=== PATIENT | female | born 1970 | race African-American/Black ===

== ENCOUNTER 2020-04-17 11:31 | Outpatient (REF) | payer MEDICAID, SELFPAY ==
--- NOTE | 2020-04-17 11:40 | XR_ITS ---
EXAMINATION: XR SHOULDER, LEFT CLINICAL INFORMATION: Fall, trauma, pain COMPARISON: None TECHNIQUE: Left shoulder is imaged in 4 views. FINDINGS: There is no fracture, dislocation, destructive process. The acromioclavicular alignment is normal. The glenohumeral joint is unremarkable. There is some mild inferior spurring at the acromioclavicular joint. No visible rotator cuff calcifications. Left lung apex is clear and shows no pneumothorax or pleural reaction. XR/XR shoulder LT min 2V IMPRESSION: No fracture or dislocation. Mild spurring acromioclavicular joint.
--- NOTE | 2020-04-17 11:40 | XR_ITS ---
EXAMINATION: XR KNEE, LEFT CLINICAL INFORMATION: Fall, trauma, pain COMPARISON: None TECHNIQUE: Four views of the left knee. FINDINGS: There is no fracture or dislocation or suprapatellar effusion. No destructive process. There are osteoarthritic changes with mild narrowing medial knee joint compartment and marginal osteophytes bilateral femoral condyles and bilateral tibial plateau. There is mild posterior patellar spurring as well as spurring at the quadriceps insertion on the patella. Hoffa's fat pad appears normal. XR/XR knee LT 4V IMPRESSION: 1. No fracture, dislocation, or effusion. 2. Mild osteoarthritic changes with borderline joint narrowing, marginal osteophytes.
== END 2020-04-17 11:32 | disposition home or self-care (01) ==
LOC: HO.XRAY 11:31
PROVIDERS: PCP General Practice; Visit Provider Registered Nurse
DX: M25.512 Pain in left shoulder (principal); M25.562 Pain in left knee; W10.1XXA Fall (on)(from) sidewalk curb, initial encounter
CPT/HCPCS: 73030; 73564

== ENCOUNTER 2021-08-28 07:38 | Outpatient (REF) | payer MEDICAID, SELFPAY ==
--- NOTE | ~2021-08-28 | XR_ITS ---
EXAMINATION: XR SHOULDER, LEFT CLINICAL INFORMATION: Left shoulder pain COMPARISON: March 2020 TECHNIQUE: AP external rotation, Grashey, scapular Y, and axillary views of the left shoulder. FINDINGS: Small spurring of the distal left clavicle again observed. No acute bony fracture or dislocation. The glenohumeral joint space appears to be stable. No suspicious abnormal soft tissue calcifications. There is minimal spurring of the inferior left acromion. XR/XR shoulder LT min 2V IMPRESSION: No significant change since March 2020. No acute process. Small stable spurring at the left AC joint.
== END 2021-08-28 07:39 | disposition home or self-care (01) ==
LOC: HO.HOSX 07:38
PROVIDERS: Visit Provider Physician Assistant
DX: M75.102 Unspecified rotator cuff tear or rupture of left shoulder, not specified as traumatic (principal)
CPT/HCPCS: 20610; 73030; 99202; J1040

== ENCOUNTER 2021-09-16 08:01 | Outpatient (REF) | payer MEDICAID, SELFPAY | END 2021-09-16 08:02 | disposition home or self-care (01) | LOC: HO.HOSX 08:01 | PROVIDERS: Visit Provider Physician Assistant | DX: Z13.89 Encounter for screening for other disorder (principal) ==

== ENCOUNTER 2021-10-20 07:17 | Outpatient (REF) | payer MEDICAID, SELFPAY | END 2021-10-20 07:18 | disposition home or self-care (01) | LOC: HO.HOSX 07:17 | PROVIDERS: Visit Provider Physician Assistant | DX: Z13.89 Encounter for screening for other disorder (principal) ==

== ENCOUNTER 2021-11-13 08:51 | Outpatient (REF) | payer MEDICAID, SELFPAY ==
--- NOTE | ~2021-11-13 | XR_ITS ---
EXAMINATION: XR KNEE, LEFT XR KNEE AP STANDING CLINICAL INFORMATION: Pain. COMPARISON: Radiographs dated 04/17/2020. TECHNIQUE: Lateral and axial views of the left knee are obtained. AP bilateral standing view of the knees was obtained. FINDINGS: Bony alignment and mineralization are normal. The lateral, medial and patellofemoral joint space compartments of the left knee are well-maintained. There is mild, circumferential peripheral osteophyte formation of the articular surface of the patella. No fracture, dislocation or left knee joint effusion is seen. There is no foreign body. The lateral joint space compartment of the right knee is well-maintained. The lateral joint space compartment of the left knee shows very mild asymmetric narrowing, with peripheral osteophyte formation. No significant varus or valgus configuration is seen bilaterally. XR/XR knee LT 2V IMPRESSION: 1. There is mild osteoarthritic change of the patellofemoral compartment of the left knee. 2. There is mild osteoarthritic change of the medial joint space compartment of the right knee. 3. No fracture or dislocation is seen bilaterally. There is no significant left knee joint effusion. 4. No significant varus or valgus configuration is seen bilaterally.
--- NOTE | ~2021-11-13 | XR_ITS ---
EXAMINATION: XR KNEE, LEFT XR KNEE AP STANDING CLINICAL INFORMATION: Pain. COMPARISON: Radiographs dated 04/17/2020. TECHNIQUE: Lateral and axial views of the left knee are obtained. AP bilateral standing view of the knees was obtained. FINDINGS: Bony alignment and mineralization are normal. The lateral, medial and patellofemoral joint space compartments of the left knee are well-maintained. There is mild, circumferential peripheral osteophyte formation of the articular surface of the patella. No fracture, dislocation or left knee joint effusion is seen. There is no foreign body. The lateral joint space compartment of the right knee is well-maintained. The lateral joint space compartment of the left knee shows very mild asymmetric narrowing, with peripheral osteophyte formation. No significant varus or valgus configuration is seen bilaterally. XR/XR knee standing BI IMPRESSION: 1. There is mild osteoarthritic change of the patellofemoral compartment of the left knee. 2. There is mild osteoarthritic change of the medial joint space compartment of the right knee. 3. No fracture or dislocation is seen bilaterally. There is no significant left knee joint effusion. 4. No significant varus or valgus configuration is seen bilaterally.
== END 2021-11-13 08:52 | disposition home or self-care (01) ==
LOC: HO.HOSX 08:51
PROVIDERS: Visit Provider Physician Assistant
DX: M17.12 Unilateral primary osteoarthritis, left knee (principal)
CPT/HCPCS: 73560; 73565; 99212

== ENCOUNTER 2022-02-10 14:00 | Outpatient (RCR) | payer MEDICAID, SELFPAY ==
--- NOTE | 2021-12-23 15:53 | MHC.PT.EP ---
[facility] [place] Office [place] Office [place] Office [address] [phone] F: [phone] F: [phone] F: [phone] F: [phone] Physical Therapy Plan of Care Date of Evaluation: Date of Surgery: NA Diagnosis: L KNEE OA Assessment: Pt IS 51 YO F REFERRED TO PT FROM [facility]) WITH L KNEE OA. Pt REPORTS FALL 1 YR AGO WHICH STARTED PAIN IN L KNEE AND L SHLDER (Pt TO GET SCRIPT FOR L SHLDER TREATMENT ALSO). PRESENTS WITH DECREASED L KNEE FLEXION, PAIN. SHOULD BENEFIT FROM PT TO ADDRESS THESE ISSUES Frequency and Duration: The patient will be seen 2X/WK X 4 WKS Short Term Goals: 1. INCREASED AWARENESS KNEE CARE 2. I HEP WITH DC EX PLAN Group Home Goals: 1. INCREASED L KNEE FLEX 10 DEGREES 2. DECREASED L KNEE PAIN AT LEASAT 50% WITH ADLS 3. IMPROVED LEFI (SOC=) Treatment Plan: Modalities to reduce pain, spasms and effusion. Manual therapy to restore motion and function. Therapeutic exercise to improve strength and flexibility. Neuromuscular re-education for posture and balance. Therapeutic activities to return to functional activities of daily living. Electronically signed by: KENDY VERDUGO PT Please sign and return to therapist. Thank you for your referral.
--- NOTE | 2022-02-13 12:17 | MHC.PT.DC ---
[facility] [place] Office [place] Office [place] Office [address] [facility] [phone] F: [phone] F: [phone] F: [phone] F: [phone] Physical Therapy Discharge Report Diagnosis: L KNEE OA Date of Surgery: NA Date of Evaluation: 12/23/21 Date of Discharge: 02/13/22 Treatments to Date: 6 Cancellations to Date: No Shows to Date: Discharge Status: Achieved Goals Improved Function Independent with HEP Patient Elected to Stop Discharge Summary: HAS MET PT GOALS Electronically signed by: KENDY VERDUGO PT Please sign and return to therapist. Thank you for your referral.
== END 2022-02-13 12:26 | disposition home or self-care (01) ==
LOC: HO.PT 14:00
PROVIDERS: PCP General Practice; Visit Provider Physician Assistant
DX: M17.12 Unilateral primary osteoarthritis, left knee (principal)
CPT/HCPCS: 97110; 97161; 97530

== ENCOUNTER 2022-03-10 14:00 | Outpatient (RCR) | payer MEDICAID, SELFPAY ==
[2022-03-04 14:09] VITALS: BP 151/95; PULSE 85; O2SAT 97
== END 2022-03-27 15:24 | disposition home or self-care (01) ==
LOC: HO.PT 14:00
PROVIDERS: PCP General Practice; Visit Provider General Practice
DX: M25.512 Pain in left shoulder (principal)
CPT/HCPCS: 97110; 97162

== ENCOUNTER 2023-03-08 11:40 | Outpatient (REF) | payer MEDICAID, SELFPAY ==
[2023-03-08 13:53] LABS: Estimated Average Glucose 114 mg/dL; Hemoglobin A1c % 5.6 % (<6.0)
[2023-03-08 14:04] LABS: Alanine Aminotransferase 21 U/L (0-31); Albumin Level 4.2 g/dL (3.5-5.0); Alkaline Phosphatase 85 U/L (39-117); Anion Gap 12 (12-20); Aspartate Amino Transferase 25 U/L (5-31); Bilirubin Total 0.3 mg/dL (0.0-1.0); Blood Urea Nitrogen 8 mg/dL (9-16); Calcium 9.6 mg/dL (8.4-10.2); Carbon Dioxide 30 mmol/L (22-29); Chloride 104 mmol/L (96-108); Cholesterol 185 mg/dL (<200); Estimated Glomerular Filt Rate > 60; Glucose Random 92 mg/dL (60-115); HDL Cholesterol 42 mg/dL (>40); LDL Cholesterol Calculated 100 mg/dL (<100); Potassium 4.3 mmol/L (3.3-5.1); Sodium 142 mmol/L (135-145); Total Protein 8.2 g/dL (6.5-8.0); Triglycerides 219 mg/dL (<150)
[2023-03-08 14:23] LABS: TSH reflex Free T4 0.46 uIU/mL (0.32-4.0)
== END 2023-03-08 11:41 | disposition home or self-care (01) ==
LOC: HO.HHCL 11:40
PROVIDERS: Visit Provider General Practice
DX: E05.90 Thyrotoxicosis, unspecified without thyrotoxic crisis or storm (principal); I10 Essential (primary) hypertension
CPT/HCPCS: 36415; 80053; 80061; 83036; 84443

== ENCOUNTER → 2023-04-07 12:45 | Outpatient (REF) | payer MEDICAID, SELFPAY ==
--- NOTE | 2023-04-07 12:47 | CA_ITS ---
Transthoracic Echocardiogram Patient (Last, First, Middle): Shelby Boateng E Gender: Female Date of : 1970 Age: 53 Procedure Date: 04/07/2023 Procedure Type: Transthoracic Echocardiogram Location: OP Height: 154.94 cm Weight: 87.09 kg BSA: 1.86 m2 Heart Rate: bpm BP: 120 / 80 mmHg Blast Furnace Checker: DL/ARIELLA Referring MD: Leidy House MD Electronic Train Control Technician: Iglesia Us MD Symptoms: R06.01 BREATHLESSNESS WHEN LYING DOWN Study Quality: Adequate ECG Rhythm: Sinus Conclusions: - 1. Normal LV ejection fraction 65-70% with impaired relaxation filling pattern 2. Normal cardiac valvular Dopplers 3. No gross pericardial effusion Findings Left Ventricle Normal left ventricular size, thickness, and systolic function. The visually estimated ejection fraction is between 65-70%. Spectral Doppler is indicative of an impaired relaxation filling pattern. E/E prime ratio is between 8 and 15 consistent with indeterminate filling pressures. Peak GLS is -16.3%, which is mildly reduced. Right Ventricle Normal right ventricular cavity size and systolic function. Atria Both atria are normal in size. There is lipomatous hypertrophy of the interatrial septum. Interatrial shunt cannot be excluded. Aortic Valve Normal aortic valve structure and function. There is no aortic valve stenosis. There is no aortic valve regurgitation. Mitral Valve Normal mitral valve structure and function. There is trace mitral valve regurgitation. There is no mitral valve stenosis. Pulmonic Valve The pulmonic valve is likely normal. Tricuspid Valve Normal tricuspid valve structure. Tricuspid regurgitation envelope is inadequate for calculation of right ventricular systolic pressure. Normal right atrial pressure. Great Vessels All visible segments of the aorta are normal in size. The pulmonary artery was not well visualized. There is no dilatation of the ascending aorta measuring 2.70 cm. Venous The inferior vena cava is normal in size and collapses greater than 50% with inspiration. Pericardium/Pleural There is no evidence of pericardial effusion. Prior Study Comparison No prior study available for comparison. Recommendations, Care & Conclusions Recommend contrast study to evaluate intracardiac shunting. Measurements 2D Linear Measurements IVSd: 1.14 0.6-0.9/0.6-1.0 cm LVIDd: 3.84 3.9-5.3/4.2-5.9 cm LVIDd Index: 2.06 2.4-3.2/2.2-3.1 cm/m2 LVIDs: 2.37 2.0-3.6 cm LVPWd: 1.05 0.7-1.1 cm LA Diam: 4.00 2.7-3.8/3.0-4.0 cm LAIDs Index: 2.15 1.5-2.3 cm/m2 LV Mass: 169.14 67-162/88-224 g LV Mass Index: 90.93 43-95/49-115 g/m2 LVOT Diam: 2.00 3.0+(-)1.3 cm 2D Systolic Function EF 4C: 75.50 >55% EF 2C: 59.70 >55% EF BiP: 69.50 >55% Mitral Valve MV Pk E: 0.84 MV PK A: 0.97 MV Decel Time: 216.00 E/A: 0.90 E'Lateral: 6.64 E'Medial: 5.55 E/E' Med: 15.10 E/E' Lat: 12.70 PHT: 63.00 MVA PHT: 3.49 Decel Kitt[place]: 3.89 Aortic Valve AoV Pk Brandon: 1.27 AoV Mn Brandon: 0.90 AoV VTI: 0.26 AoV Pk Grad: 6.00 Aov Mn Grad: 4.00 SARAH Cont.VTI: 2.55 LVOT LVOT Pk Brandon: 1.02 LVOT Mn Brandon: 0.70 LVOT VTI: 0.21 LVOT Pk Grad: 4.00 LVOT Mn Grad: 2.00 LVOT Diam: 2.00 LVOT Area: 3.14 Diastolic Function MV Pk E: 0.84 MV Pk A: 0.97 E/A: 0.90 E'Medial: 5.55 E/E' Med: 15.10 E' Laterial: 6.64 E/E' Lat: 12.70 Right Ventricle TAPSE (mm): 18.20 TVS' Brandon: 10.60 Tricuspid Valve RA Press: 3.00 Great Vessels Aorta Sinus of Valsalva: 3.27 2.0-3.[address] [place]: 2.37 1.7-3.4 cm Ao Asc: 2.70 2.1-3.4 cm Updated in Other Vendor System with Status of Final Iglesia Us MD electronically signed on 04/07/2023 3:10:16 PM with status of Final
== END ==
LOC: HO.CARD 12:45
PROVIDERS: PCP General Practice; Visit Provider General Practice
DX: R06.01 Orthopnea (principal)
CPT/HCPCS: 93306; 93356

== ENCOUNTER → 2023-04-07 12:47 | Outpatient (BNV) | payer MEDICAID, SELFPAY | PROVIDERS: PCP General Practice; Visit Provider Internal Medicine Cardiovascular Disease | DX: R06.01 Orthopnea (principal) | CPT/HCPCS: 93306 ==

== ENCOUNTER → 2023-04-14 19:00 | Outpatient (BNV) | payer MEDICAID, SELFPAY | PROVIDERS: PCP General Practice; Visit Provider Internal Medicine | DX: G47.33 Obstructive sleep apnea (adult) (pediatric) (principal) | CPT/HCPCS: 95810 ==

== ENCOUNTER → 2023-04-14 19:30 | Outpatient (REF) | payer MEDICAID, SELFPAY | LOC: HO.SL 19:30 | PROVIDERS: PCP General Practice; Visit Provider General Practice | DX: G47.33 Obstructive sleep apnea (adult) (pediatric) (principal) | CPT/HCPCS: 95810 ==

== ENCOUNTER 2023-07-28 14:38 | Outpatient (REF) | payer MEDICAID, SELFPAY | END 2023-07-28 14:39 | disposition home or self-care (01) | LOC: HO.MAMMO 14:38 | PROVIDERS: PCP General Practice; Visit Provider General Practice | DX: Z12.31 Encounter for screening mammogram for malignant neoplasm of breast (principal) | CPT/HCPCS: 77063; 77067 ==

== ENCOUNTER → 2023-07-28 15:45 | Outpatient (BNV) | payer MEDICAID, SELFPAY | PROVIDERS: PCP General Practice; Visit Provider Radiology Diagnostic Radiology | DX: Z12.31 Encounter for screening mammogram for malignant neoplasm of breast (principal) | CPT/HCPCS: 77063; 77067 ==

== ENCOUNTER 2023-09-06 16:14 | Outpatient (REF) | payer MEDICAID, SELFPAY ==
[2023-09-06 17:42] LABS: Hematocrit 43.4 % (37.0-47.0); Hemoglobin 14.4 g/dl (12.0-16.0); Mean Corpuscular HGB Conc 33.2 g/dl (31.0-35.0); Mean Corpuscular Hemoglobin 29.5 pg (27.0-33.0); Mean Corpuscular Volume 88.9 fL (80.0-98.0); Mean Platelet Volume 11.2 fL (9.4-12.3); Platelet Count 242 X10*3/uL (160-400); Red Blood Count 4.88 X10*6/uL (4.20-5.50); Red Cell Distribution Width 13.1 % (11.0-16.0); White Blood Count 5.2 X10*3/uL (4.8-10.8)
[2023-09-06 17:56] LABS: Creatinine Urine 156.36 mg/dL; Microalbum/Creatinine Ratio Ur 267.3 ug/mg cr (<30)
[2023-09-06 18:21] LABS: Alanine Aminotransferase 26 U/L (0-31); Albumin Level 4.1 g/dL (3.5-5.0); Alkaline Phosphatase 78 U/L (39-117); Anion Gap 12 (12-20); Aspartate Amino Transferase 19 U/L (5-31); Bilirubin Total 0.2 mg/dL (0.0-1.0); Blood Urea Nitrogen 12 mg/dL (9-16); Calcium 9.9 mg/dL (8.4-10.2); Carbon Dioxide 29 mmol/L (22-29); Chloride 107 mmol/L (96-108); Cholesterol 206 mg/dL (<200); Estimated Glomerular Filt Rate > 60; Glucose Random 80 mg/dL (60-115); HDL Cholesterol 38 mg/dL (>40); Iron 72 mcg/dL (30-160); LDL Cholesterol Calculated 100 mg/dL (<100); Percent Iron Saturation 27 % (15-50); Potassium 4.2 mmol/L (3.3-5.1); Sodium 144 mmol/L (135-145); Total Iron Binding Capacity 266 mcg/dL (228-428); Total Protein 8.1 g/dL (6.5-8.0); Triglycerides 341 mg/dL (<150); Unsaturated Iron Binding 194 ug/dL
[2023-09-06 18:34] LABS: Ferritin 156 ng/mL (10-250)
[2023-09-07 08:29] LABS: HBS Num1 9.22 mIU/mL (0-7.99); HBc Num1 0.16 S/CO (0.00-0.79); HBsAGNum1 0.25 S/CO (0.00-0.99); Hepatitis B Core Antibody Nonreactive (Nonreactive); Hepatitis B Surface Antigen Negative (Negative); ~HepC Num1 0.18 S/CO (0.00-0.79); ~Hepatitis C Antibody Nonreactive (Nonreactive)
[2023-09-08 08:11] LABS: HBS Num2 9.12 mIU/mL (0-7.99); HBS Num3 8.83 mIU/mL (0-7.99); ~Hepatitis B Surface Antibody GRAYZONE (Nonreactive)
[2023-09-08 15:35] LABS: Estimated Average Glucose 120 mg/dL; Hemoglobin A1C 149.1679 umol/L; Hemoglobin A1c % 5.8 % (<6.0)
== END 2023-09-06 16:15 | disposition home or self-care (01) ==
LOC: HO.HHCL 16:14
PROVIDERS: Visit Provider Nurse Practitioner
DX: I10 Essential (primary) hypertension (principal); D64.9 Anemia, unspecified; Z11.3 Encounter for screening for infections with a predominantly sexual mode of transmission
CPT/HCPCS: 36415; 80053; 80061; 82043; 82570; 82728; 83036; 83540; 85027; 86704; 86706; 86803; 87340

== ENCOUNTER 2024-01-07 12:25 | Emergency (ER) | payer MEDICAID, SELFPAY ==
[2024-01-07 13:06] VITALS: BP 164/102; PULSE 101; RESP 16; TEMP 37; O2SAT 97; BMI 36.7
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
--- NOTE | 2024-01-07 13:10 | ECG_ITS ---
Test Reason : dizziness Blood Pressure : / mmHG Vent. Rate : 090 BPM Atrial Rate : 090 BPM P-R Int : 142 ms QRS Dur : 076 ms QT Int : 360 ms P-R-T Axes : 070 -04 037 degrees QTc Int : 440 ms Normal sinus rhythm Anterior infarct , age undetermined Abnormal ECG No previous ECGs available Referred By: Gina Rodgers Electronically Signed By:JOSE MANUEL VOGT
[2024-01-07 13:31] LABS: MANUAL DIFF FLAG NO
[2024-01-07 13:33] LABS: Basophils Absolute Auto 0.1 X10*3/uL (0.0-0.2); Eosinophils Absolute Auto 0.2 X10*3/uL (0.0-0.4); Eosinophils Percent Auto 3.1 % (0-4); Hematocrit 44.9 % (37.0-47.0); Hemoglobin 15.2 g/dl (12.0-16.0); Imm Gran Abs Auto 0.01 X10*3/uL (0.00-0.03); Imm Gran Pct Auto 0.2 % (0.0-0.4); Lymphocytes Absolute Auto 2.1 X10*3/uL (1.2-4.9); Lymphocytes Percent Auto 42.7 % (20-40); Mean Corpuscular HGB Conc 33.9 g/dl (31.0-35.0); Mean Corpuscular Hemoglobin 29.5 pg (27.0-33.0); Mean Platelet Volume 10.8 fL (9.4-12.3); Monocytes Absolute Auto 0.5 X10*3/uL (0.1-1.2); Monocytes Percent Auto 10.6 % (2-11); Neutrophils Percent Auto 42.4 % (45-73); Platelet Count 216 X10*3/uL (160-400); Red Blood Count 5.16 X10*6/uL (4.20-5.50); Red Cell Distribution Width 13.2 % (11.0-16.0); White Blood Count 4.8 X10*3/uL (4.8-10.8)
[2024-01-07 13:49] LABS: Prothrombin Time 12.2 SEC (11.1-13.3)
[2024-01-07 13:52] LABS: Alanine Aminotransferase 23 U/L (0-31); Albumin Level 4.2 g/dL (3.5-5.0); Alkaline Phosphatase 84 U/L (39-117); Anion Gap 11 (12-20); Aspartate Amino Transferase 21 U/L (5-31); Bilirubin Total 0.3 mg/dL (0.0-1.0); Blood Urea Nitrogen 8 mg/dL (9-16); Calcium 9.9 mg/dL (8.4-10.2); Carbon Dioxide 27 mmol/L (22-29); Chloride 107 mmol/L (96-108); Creatinine Clr Calc Pharmacy 87.3; Estimated Glomerular Filt Rate > 60; Glucose Random 95 mg/dL (60-115); Magnesium 1.9 mg/dL (1.6-2.6); Sodium 141 mmol/L (135-145)
[2024-01-07 14:08] LABS: Troponin-I High Sensitivity < 2.7 ng/L (<3.5-17.0)
[2024-01-07 15:56] VITALS: BP 169/81; PULSE 92; RESP 20; TEMP 37; O2SAT 97
--- NOTE | 2024-01-07 15:58 | PC.NURSE ---
Pt came back into triage, at this time she needed to leave to get the last bus, provider and pt discussed that she was able to leave if she needed too as we still needed to do further testing than what we can do from the waiting room. Pt in agreement with plan to leave and to follow up with pcp or come back to ED if symptoms worsen.
== END 2024-01-07 17:10 | disposition left against medical advice (07) ==
LOC: HO.ED 16:02
PROVIDERS: Physician Assistant Medical; Emergency Provider Emergency Medicine; PCP General Practice
DX: R42 Dizziness and giddiness (principal); I10 Essential (primary) hypertension; J45.909 Unspecified asthma, uncomplicated; E05.90 Thyrotoxicosis, unspecified without thyrotoxic crisis or storm; Z79.899 Other long term (current) drug therapy; F17.200 Nicotine dependence, unspecified, uncomplicated
CPT/HCPCS: 36415; 80053; 83735; 84484; 85025; 85610; 93005; 99281; 99283

== ENCOUNTER 2024-11-18 05:19 | Inpatient (IN) | payer MEDICAID, SELFPAY ==
[2024-11-18] VITALS (13 sets, daily range): BP systolic 142–197; BP diastolic 69–100; PULSE 67–94; RESP 15–25; TEMP 36.5–37.1; O2SAT 93–100; BMI 33.8; BMI 34.9
--- NOTE | ~2024-11-18 | US_ITS ---
CLINICAL HISTORY: RUQ pain, tender --- Additional Notes or Special Instructions: AM routine US (no tech call in is needed). Point of care US abdomen limited with duplex and color Doppler Comparison: None Findings: Visualized pancreas is normal. Tail obscured by bowel gas. Liver is normal in size and echotexture. Right lobe length 17.8 cm. No focal hepatic masses. Common duct 3.4 mm diameter. Gallbladder is physiologically distended. 2.1 cm mobile gallstone. 1.4 cm gallstone seemed fixed in the neck of the gallbladder. No gallbladder wall thickening. No pericholecystic fluid. Technologist made no documentation about a Osorio's sign Main portal vein antegrade. Right kidney measures, 11.6 cm in length. Normal cortical width and echotexture. No hydronephrosis calculus or mass. Impression: 1. Cholelithiasis. 1.4 cm nonmobile gallstone neck of the gallbladder. No gallbladder wall thickening pericholecystic fluid or biliary dilatation. 2. The technologist made no documentation about a sonographic Osorio's sign This document has been electronically signed by: Arnaud Saldana MD on 11/18/2024 10:28:29
--- NOTE | 2024-11-18 05:26 | ECG_ITS ---
Test Reason : abd pain Blood Pressure : */* mmHG Vent. Rate : 69 BPM Atrial Rate : 69 BPM P-R Int : 154 ms QRS Dur : 76 ms QT Int : 406 ms P-R-T Axes : 72 -8 50 degrees QTcB Int : 435 ms Normal sinus rhythm Normal ECG When compared with ECG of 07-Jan-2024 13:16, No significant change was found Referred By: Generic ED Physician Electronically Signed By: Schuyler Morgan
--- NOTE | 2024-11-18 05:39 | ED.ABDPAIN ---
HPI - Abdominal Pain General Chief Complaint: Abdominal Pain Stated Complaint: upper ab pain n/v Time Seen by Provider: 11/18/24 05:37 History of Present Illness ED Provider: Rick Arroyo MD HPI narrative: 54-year-old female with a history of ruptured appendix with an open appendectomy 2012, C-sections, obesity osteoarthritis with abrupt onset of right upper quadrant pain about 1 in the morning nonbloody nonbilious vomiting. Some radiation to the chest but mostly in the right upper quadrant under the costal margin. Denies urinary symptoms no fever or chills Related Data Home Medications ?Medication ?Instructions ?Recorded ?Confirmed cyclobenzaprine 10 mg tablet 10 mg PO BID PRN Muscle Spasm 08/28/21 11/18/24 esomeprazole magnesium 20 mg 20 mg PO DAILY 08/28/21 11/18/24 capsule,delayed release ferrous sulfate 325 mg (65 mg 325 mg PO Q48H 08/28/21 11/18/24 iron) tablet (FeroSul) lidocaine 5 % topical patch 1 patch topical DAILY PRN Pain 08/28/21 11/18/24 (Lidoderm) naproxen 500 mg tablet 500 mg PO BID PRN Pain 08/28/21 11/18/24 sertraline 50 mg tablet 50 mg PO DAILY 08/28/21 11/18/24 albuterol sulfate 90 mcg/actuation 2 puff inhalation Q4-6H PRN 11/18/24 11/18/24 aerosol inhaler (Ventolin HFA) Shortness Of Breath Or Wheezing atorvastatin 10 mg tablet 10 mg PO DAILY 11/18/24 11/18/24 hydrochlorothiazide 12.5 mg tablet 12.5 mg PO DAILY 11/18/24 11/18/24 loperamide 2 mg tablet 2 mg PO TIDWM PRN Loose Stool 11/18/24 11/18/24 metoprolol succinate 50 mg 50 mg PO DAILY 11/18/24 11/18/24 tablet,extended release 24 hr Previous Rx's ?Medication ?Instructions ?Recorded docusate sodium 100 mg capsule 100 mg PO BID PRN Constipation #20 11/19/24 caps oxycodone 5 mg tablet 10 mg (2 x 5 mg) PO Q4H PRN Pain, 11/19/24 Moderate(Pain Scale 4-6) #18 tabs Allergies Allergy/AdvReac Type Severity Reaction Status Date / Time paroxetine (From PAXIL) Allergy Intermediate VIOLENT Verified 11/18/24 05:33 [facility] Past Medical History Medical History Sleep apnea Asthma Hyperthyroidism Surgical History Hx of section Hx of appendectomy Social History Social History Household Members: Significant Other Housing: House Alcohol intake: current Alcohol intake frequency: a few times a week Patient Tobacco Use Status: Never used Tobacco Second Hand Smoke Exposure: No Substance Use Type: Crack/Cocaine service: No Current occupational status: disabled Current occupation: rt hand Physical Exam ED Exam Exam: EXAM: Gen: Alert, awake, uncomfortable and in pain Head: Atraumatic Eyes: Anicteric, Normal conjunctiva. ENT: Moist mucosa, no pallor. ? Neck: Supple. Skin: ?No observable rash or bruising on exposed or examined skin Respiratory: Breathing comfortably, No distress.Clear to auscultation bilaterally, symmetric chest expansion, No wheeze, rales, ronchi. Cardiovascular: Regular rate and rhythm. No murmurs or rub. Well perfused periphery, warm extremities. No edema. ? Abdominal: Moderate right upper quadrant and tenderness with Osorio's sign Soft, no objective distension. No palpable masses or obvious organomegaly. ?No guarding, no rebound tenderness or other peritoneal findings. : No flank tenderness. Neuro: Alert. Gross movement of all extremities intact. ? Psych: Calm. Cooperative. MSK: No grossly visible deformity. Vital signs: See flowsheet Vital Signs: Vital Signs - 24 hr 11/18/24 05:29 11/18/24 05:56 11/18/24 07:13 Temperature 97.7 F 97.7 F Pulse Rate 69 69 Respiratory Rate 20 25 H Blood Pressure 159/84 H 159/84 H Pulse Oximetry 100 100 Oxygen Delivery Method Room Air Room Air 11/18/24 09:33 11/18/24 09:39 Temperature 97.9 F Pulse Rate 69 Respiratory Rate 25 H 18 Blood Pressure 197/97 H Pulse Oximetry 98 Oxygen Delivery Method Room Air BMI result Body Mass Index 33.8 Procedures Procedure Narrative Procedure Narrative: EMERGENCY ULTRASOUND INTERPRETATION- Limited Point of Care Biliary [This study was ordered, performed, and interpreted by myself. The study reveals: Impression: Large impacted nonmobile 1.8 cm gallstone in the gallbladder neck with gallbladder wall thickening to 5 mm. Normal CBD [Indication: RUQ PAIN Gallbladder: Dilated gallbladder with maximal wall thickness 5 mm. No pericholecystic fluid. Positive sonographic Osorio's. Nonmobile gallstone impacted in the neck 1.8 cm -Additional: WALL MEASUREMENT: CBD MEASURMENT IF OBTAINED: 2.5 mm Performed by: Rick Arroyo MD Images were stored CPT:18965] Course Course Course Narrative: repeat doses of IV dilaudid US shows biliary colic admit to surgery per Dr. Adam Medical Decision Making Medical Decision Making MDM Narrative: Medical Decision Makin-year-old female with right upper quadrant pain abrupt onset. Hypertensive in pain nauseous nonbloody nonbilious vomiting. Sonographic Osorio's with impacted stone and gallbladder wall thickening. No CBD dilation. This is the presumed etiology of the patient's abrupt right upper quadrant pain. We will control her pain and nausea and consult surgery after labs returned. Preliminary Favored Differential Diagnosis: Biliary pathology, PUD, gastritis, food poisoning or food-borne illness, among additional considered etiologies Testing Interpreted Independently: See my point of care ultrasound of the biliary structures above Radiology or Lab testing Results Reviewed: Not Applicable Consults: Not Applicable Independent Historians/External Chart Reviews: Not Applicable Social Determinants of Health Impacting MDM/Planning: Not Applicable Lab Data 11/18/24 05:41 11/18/24 05:41 Labs: Lab Results 11/18/24 11/18/24 Range/Units 05:41 06:14 WBC 6.6 (4.8-10.8) X10*3/uL RBC 4.76 (4.20-5.50) X10*6/uL Hgb 14.1 (12.0-16.0) g/dl Hct 40.6 (37.0-47.0) % MCV 85.3 (80.0-98.0) fL MCH 29.6 (27.0-33.0) pg MCHC 34.7 (31.0-35.0) g/dl RDW 13.4 (11.0-16.0) % Plt Count 212 (160-400) X10*3/uL MPV 10.6 (9.4-12.3) fL Immature Gran % (Auto) 0.3 (0.0-0.4) % Neut % (Auto) 67.7 (45-73) % Lymph % (Auto) 21.7 (20-40) % [place] % (Auto) 7.3 (2-11) % Eos % (Auto) 2.4 (0-4) % Baso % (Auto) 0.6 (0-2) % Lymph # (Auto) 1.4 (1.2-4.9) X10*3/uL [place] # (Auto) 0.5 (0.1-1.2) X10*3/uL Eos # (Auto) 0.2 (0.0-0.4) X10*3/uL Baso # (Auto) 0.0 (0.0-0.2) X10*3/uL Abs Immat Gran (auto) 0.02 (0.00-0.03) X10*3/uL Absolute Neuts (auto) 4.5 (2.0-8.3) x10*3/uL Absolute Nucleated RBC 0.000 (0.0-0.012) X10*3/uL Nucleated RBC % (auto) 0.0 (0.0-0.2) /100WBC Sodium 141 (135-145) mmol/L Potassium 4.0 (3.3-5.1) mmol/L Chloride 106 (96-108) mmol/L Carbon Dioxide 26 (22-29) mmol/L Anion Gap 13 (12-20) BUN 11 (9-16) mg/dL Creatinine 0.71 (0.5-1.4) mg/dL Estim Creat Clear Calc 93.1 Estimated GFR > 60 Random Glucose 153 H (60-115) mg/dL Calcium 9.5 (8.4-10.2) mg/dL Magnesium 2.0 (1.6-2.6) mg/dL Total Bilirubin 0.3 (0.0-1.0) mg/dL AST 23 (5-31) U/L ALT 27 (0-31) U/L Alkaline Phosphatase 84 (39-117) U/L Troponin I High Sens < 2.7 (<3.5-17.0) ng/L Total Protein 7.5 (6.5-8.0) g/dL Albumin 4.2 (3.5-5.0) g/dL Lipase 32 (8-78) U/L Urine Color Yellow Urine Appearance Cloudy Urine pH 8.0 (5.0-9.0) Ur Specific [place] 1.025 (1.005-1.025) Urine Protein 100 (2+) H (Neg-Trace) mg/dL Urine Glucose (UA) Negative (Negative) mg/dL Urine Ketones Negative (Negative) mg/dL Urine Blood Negative (Negative) Urine Nitrite Negative (Negative) Ur Leukocyte Esterase Negative (Negative) Urine RBC 0-2 (0-2) /HPF Urine WBC 0-5 (0-5) /HPF Ur Squamous Epith Cells 0-2 (0-2) /HPF Urine Bacteria None Seen (None Seen) Hyaline Casts 0-2 (0-2) /LPF Medications Administered Discontinued Medications Generic Name Dose Route Start Last Admin Trade Name Freq PRN Reason Stop Dose Admin Atorvastatin Calcium 10 mg 11/19/24 09:00 11/19/24 08:33 Atorvastatin Calcium 10 Mg Tablet PO 10 mg DAILY AARON Administration Cyclobenzaprine HCl 10 mg 11/18/24 18:43 11/18/24 23:48 Cyclobenzaprine Hcl 10 Mg Tablet PO 10 mg BID PRN Administration Muscle Spasm Docusate Sodium 100 mg 11/19/24 10:45 11/19/24 11:27 Docusate Sodium 100 Mg Capsule PO 100 mg BID PRN Administration Constipation Hydromorphone HCl 1 mg 11/18/24 07:02 11/18/24 07:13 Hydromorphone Hcl 1 Mg/Ml Syringe IVPUSH 11/18/24 07:03 1 mg ONCE ONE Administration Protocol Hydromorphone HCl 1 mg 11/18/24 09:22 11/18/24 09:33 Hydromorphone Hcl 1 Mg/Ml Syringe IVPUSH 11/18/24 09:23 1 mg ONCE ONE Administration Protocol Hydromorphone HCl 1 mg 11/18/24 10:51 11/19/24 11:37 Hydromorphone Hcl 1 Mg/Ml Syringe IVPUSH 1 mg Q3H PRN Administration Pain, Severe (Pain Scale 7-10) Protocol Lactated Ringer's 1,000 mls @ 80 mls/hr 07/26/25 10:45 11/19/24 10:46 Lr IVCONT Infused .[id number] AARON Infusion Piperacillin Sod/Tazobactam 50 mls @ 100 mls/hr 11/18/24 10:55 11/18/24 11:44 Sod 3.375 gm/ Sodium Chloride IV 11/18/24 11:24 Infused ONCE ONE Infusion Piperacillin Sod/Tazobactam 50 mls @ 100 mls/hr 11/18/24 17:00 11/19/24 11:54 Sod 3.375 gm/ Sodium Chloride IV Infused Q6H AARON Infusion Melatonin 6 mg 11/18/24 23:59 11/19/24 00:06 Melatonin 3 Mg Tablet PO 11/19/24 00:00 6 mg ONCE ONE Administration Metoprolol Succinate 50 mg 11/19/24 09:00 11/19/24 08:33 Metoprolol Succinate Er 50 Mg Tab.Er.24h PO 50 mg DAILY AARON Administration Protocol Morphine Sulfate 4 mg 11/18/24 05:43 11/18/24 05:54 Morphine Sulfate 4 Mg/Ml Cartridge IVPUSH 11/18/24 05:44 4 mg ONCE ONE Administration Protocol Ondansetron HCl 4 mg 11/18/24 05:43 11/18/24 05:54 Ondansetron Hcl 4 Mg/2 Ml Vial IVPUSH 11/18/24 05:44 4 mg ONCE ONE Administration Ondansetron HCl 4 mg 11/18/24 10:51 11/18/24 12:30 Ondansetron Hcl 4 Mg/2 Ml Vial IVPUSH 4 mg Q8H PRN Administration Nausea and Vomiting Oxycodone HCl 10 mg 11/18/24 18:43 11/19/24 14:41 Oxycodone Hcl Immed Release 5 Mg Tablet PO 10 mg Q4H PRN Administration Pain, Moderate(Pain Scale 4-6) Sertraline HCl 50 mg 11/19/24 09:00 11/19/24 08:33 Sertraline Hcl 50 Mg Tablet PO 50 mg DAILY AARON Administration Sodium Chloride 3 ml 11/18/24 16:00 11/19/24 08:34 0.9 % Sodium Chloride Flush 3 Ml Syringe IVFLUSH 3 ml QSHIFT AARON Administration Critical Care Time Critical Care Time Critical Care Time: Yes Total Critical Care Time: 45 Attestation: repeat IV dilaudid with improvement in pain, review of records, medical consult I attest to this time spent taking care of the patient Discharge Plan Discharge Clinical Impression: Biliary colic Patient Disposition: Admitted As Inpatient Interventions: Admission Worksheet (ED) Last Done: 11/18/24 11:25 Discharge Date/Time: 11/18/24 14:57
[2024-11-18 05:45] LABS: Hematocrit 40.6 % (37.0-47.0); Hemoglobin 14.1 g/dl (12.0-16.0); Imm Gran Abs Auto 0.02 X10*3/uL (0.00-0.03); Imm Gran Pct Auto 0.3 % (0.0-0.4); Lymphocytes Absolute Auto 1.4 X10*3/uL (1.2-4.9); MANUAL DIFF FLAG NO; Mean Corpuscular HGB Conc 34.7 g/dl (31.0-35.0); Mean Corpuscular Hemoglobin 29.6 pg (27.0-33.0); Mean Corpuscular Volume 85.3 fL (80.0-98.0); NRBC Abs Auto 0.000 X10*3/uL (0.0-0.012); NRBC Pct Auto 0.0 /100WBC (0.0-0.2); Platelet Count 212 X10*3/uL (160-400); Red Blood Count 4.76 X10*6/uL (4.20-5.50); White Blood Count 6.6 X10*3/uL (4.8-10.8)
--- NOTE | 2024-11-18 05:55 | PC.NURSE ---
[place] [phone] [facility]
[2024-11-18 05:59] LABS: Lipase 32 U/L (8-78)
[2024-11-18 06:01] LABS: Alanine Aminotransferase 27 U/L (0-31); Albumin Level 4.2 g/dL (3.5-5.0); Alkaline Phosphatase 84 U/L (39-117); Anion Gap 13 (12-20); Aspartate Amino Transferase 23 U/L (5-31); Blood Urea Nitrogen 11 mg/dL (9-16); Calcium 9.5 mg/dL (8.4-10.2); Carbon Dioxide 26 mmol/L (22-29); Chloride 106 mmol/L (96-108); Creatinine Clr Calc Pharmacy 93.1; Estimated Glomerular Filt Rate > 60; Magnesium 2.0 mg/dL (1.6-2.6); Potassium 4.0 mmol/L (3.3-5.1); Sodium 141 mmol/L (135-145); Total Protein 7.5 g/dL (6.5-8.0)
[2024-11-18 06:12] LABS: Troponin-I High Sensitivity < 2.7 ng/L (<3.5-17.0)
--- NOTE | 2024-11-18 06:19 | PC.NURSE ---
PT RIOS from home. with complaints of RUQ pain and N/V. EMS IV line in placed on arrival. PT VSS, ekg completed, labs drawn and sent down to lab. PT placed on phototypesetting equipment monitor. Medicated as per JUN. Plan ongoing
[2024-11-18 06:21] LABS: Appearance Urine Cloudy; Glucose Urine UA Negative (Negative); PH 8.0 (5.0-9.0); Specific Gravity - Urine 1.025 (1.005-1.025); UMIC TRIGGER UACC YES
--- NOTE | 2024-11-18 07:20 | PC.NURSE ---
Assumed care of pt at 0700. Pt a/ox3, endorsing to this RN 02/02 RUQ abdominal pain. MD Beltran made aware- pt medicated per JUN @ 07 with 1mg Dilaudid IVP. Respirations even and unlabored, no increased wob/sob, maintaining O2 sat >92% on RA. Pt remains nsr on monitoring specialist, HR 60s, denies SOB/CP. Endorsing mild nausea- no vomiting/dizziness. Pt updated on plan of care and to remain NPO. Per pt- last PO intake approx 2100 last night before bed. Call morris within reach, all needs met at this time.
--- NOTE | 2024-11-18 10:00 | PC.NURSE ---
Pt abdominal pain relieved with IVP Dilaudid. 02/02 pain returned after abdominal ultrasound. MD Beltran made aware- pt medicated per JUN. Vitals updated in worklist- BP 197/97, MD aware of high BP. BP cycling q30 min to reassess after pain relief. Pt appears to be resting comfortably in no distress after medication administration. Call morris within reach, all needs met at this time.
--- NOTE | 2024-11-18 10:02 | PC.NURSE ---
Pt abdominal pain relived with IVP Dilaudid. 02/02 pain returned after abdominal ultrasound. MD Beltran made aware- pt medicated per JUN. Vitals updated in worklist- BP 197/97, MD aware of high BP. BP cycling q30 min to reassess after pain relief. Pt appears to be resting comfortably in no distress after medication administration. Call morris within reach, all needs met at this time.
--- NOTE | 2024-11-18 11:03 | PHA.MEDREC ---
Addendum entered by Adelita Moctezuma RPh 11/18/24 11:22: MED REC REVIEWED BY [facility] Original Note: Pharmacy Consult ? Medication Reconciliation Pharmacy has completed the medication reconciliation. Spoke to patient to confirm med list. Patient states she is not taking Prazosin 1 mg. patient confirmed Ferrous sulfate is QOD. last dose was yesterday. Patient last had all her medications yesterday.
[2024-11-18] MEDS: Lactated Ringers 1,000 ML 80 ML IVCONT (11:15)
--- NOTE | 2024-11-18 12:11 | MHC.EDTECH ---
pt is a self and was given clothes wipes and gown to wash up.
--- NOTE | 2024-11-18 14:15 | P.HPGS_ITS ---
History of Present Illness History of Present Illness Date of Service: 11/18/24 Chief complaint: abdo pain Narrative: Shelby Boateng is a 54 year old female who came into the emergency room overnight complaining of epigastric right upper quadrant radiating to the back pain and nausea and vomiting. She has never had anything as bad as this other than her ruptured appendix and was initially wondering if something was back with her appendix. This started yesterday and she woke up at around 1 in the morning and came into the emergency room. Here her white count was normal LFTs were normal but she was tender in the right upper quadrant area. Right upper quadrant ultrasound was carried out which shows distended gallbladder within impacted gallstone findings consistent with biliary colic. She required significant pain med management for pain that was 10/10. She received Dilaudid several times. Plan was to admit and carry out laparoscopic cholecystectomy. She does smoke cigarettes and drinks alcohol several times a week. No drug use she says. She is not working. She lives at home with a boyfriend. Review of Systems Review of Systems: Yes all other systems are reviewed and are negative [facility] Past Medical History Medical History Asthma Hyperthyroidism Sleep apnea Surgical History Surgical History Hx of appendectomy Hx of section Social History Social History Alcohol intake: current Alcohol intake frequency: a few times a week Patient Tobacco Use Status: Never used Tobacco Smoked in Last 30 Days: Yes Use of substances other than those prescribed or required for medical reasons: Yes Substance Use Type: Crack/Cocaine Substance Use Frequency: Occasionally Advance Directives: No Advance Directives Information Provided: Yes Do you have a plan to hurt others: No Plan Nutrition Risks: No Nutritional Risk Patient : No Current occupational status: disabled Current occupation: rt hand Meds Allergies Allergy/AdvReac Type Severity Reaction Status Date / Time paroxetine (From PAXIL) Allergy Intermediate VIOLENT Verified 11/18/24 05:33 Active Medications: Current Medications Hydromorphone HCl (Hydromorphone Hcl 1 Mg/Ml Syringe) 1 mg IVPUSH Q3H PRN; Protocol PRN Reason: Pain, Severe (Pain Scale 7-10) Last Admin: 11/18/24 12:30 Dose: 1 mg Lactated Ringer's (Lr) 1,000 mls @ 80 mls/hr IVCONT .[id number] [facility] Last Admin: 11/18/24 11:15 Dose: 80 mls/hr Ondansetron HCl (Ondansetron Hcl 4 Mg/2 Ml Vial) 4 mg IVPUSH Q8H PRN PRN Reason: Nausea and Vomiting Last Admin: 11/18/24 12:30 Dose: 4 mg Sodium Chloride (0.9 % Sodium Chloride Flush 3 Ml Syringe) 3 ml IVFLUSH QSHIFT [facility] Last Admin: 11/18/24 13:24 Dose: Not Given Home Medications ?Medication ?Instructions ?Recorded ?Confirmed ?Last Taken ?Type albuterol sulfate 2.5 mg/3 mL 2.5 mg inhalation QID ID N 08/28/21 11/18/24 Unknown History (0.083 %) solution for nebulization Shortness Of Breat h Or Wheezing cyclobenzaprine 10 mg tablet 10 mg PO BID PRN Muscle S pasm 08/28/21 11/18/24 Unknown History esomeprazole magnesium 20 mg 20 mg PO DAILY 08/28/21 0 11/18/24 11/17/24 History capsule,delayed release ferrous sulfate 325 mg (65 mg 325 mg PO Q48H 08/28/21 11/18/24 11/17/24 History iron) tablet (FeroSul) lidocaine 5 % topical patch 1 patch topical DAILY PRN Pain 08/28/21 11/18/24 Unknown History (Lidoderm) naproxen 500 mg tablet 500 mg PO BID PRN Pain 08/2811/18/24 Unknown History sertraline 50 mg tablet 50 mg PO DAILY 08/28/21/10/1811/17/24 History albuterol sulfate 90 mcg/actuation 2 puff inhalation Q 4-6H PRN 11/18/24 11/18/24 Unknown History aerosol inhaler (Ventolin HFA) Shortness Of Breath Or Wheezing atorvastatin 10 mg tablet 10 mg PO DAILY 11/18/24/10/1811/17/24 History hydrochlorothiazide 12.5 mg tablet 12.5 mg PO DAILY 11/18/24 11/17/24 History loperamide 2 mg tablet 2 mg PO TIDWM PRN Loose Stoo l 11/18/24 11/18/24 Unknown History metoprolol succinate 50 mg 50 mg PO DAILY 11/18/2411/17/24 History tablet,extended release 24 hr Physical Exam Vital Signs: Vital Signs: Last Vital Signs Temp 98.0 F 11/18/24 11:18 Pulse 67 11/18/24 11:18 Resp 20 11/18/24 11:18 BP 169/96 H 11/18/24 11:18 Pulse Ox 93 11/18/24 11:18 O2 Del Method Room Air 11/18/24 11:18 BMI result Body Mass Index 33.8 Const: Orientation/consciousness: patient oriented x3 Eyes: Other: Nonicteric Resp: Effort & Inspection: normal respiratory effort Auscultation: clear to auscultation bilaterally Cardio: Rate: regular rate Rhythm: regular rhythm GI: Other: Abdomen is soft nondistended tender in the right upper quadrant mild guarding no rebound no peritoneal signs. Skin: Other: Nonicteric Neuro: General: patient oriented x3, moves all extremities and CN's II-XI intact bilaterally Results Results Labs: Short CBC 11/18/24 Range/Units 05:41 WBC 6.6 (4.8-10.8) X10*3/uL Hgb 14.1 (12.0-16.0) g/dl Hct 40.6 (37.0-47.0) % Plt Count 212 (160-400) X10*3/uL BMP 11/18/24 05:41 Sodium 141 Potassium 4.0 Chloride 106 Carbon Dioxide 26 BUN 11 Creatinine 0.71 Calcium 9.5 Liver Function 11/18/24 Range/Units 05:41 Total Bilirubin 0.3 (0.0-1.0) mg/dL AST 23 (5-31) U/L ALT 27 (0-31) U/L Alkaline Phosphatase 84 (39-117) U/L Albumin 4.2 (3.5-5.0) g/dL Urine 11/18/24 Range/Units 06:14 Urine Color Yellow Urine Appearance Cloudy Urine pH 8.0 (5.0-9.0) Ur Specific [place] 1.025 (1.005-1.025) Urine Protein 100 (2+) H (Neg-Trace) mg/dL Urine Glucose (UA) Negative (Negative) mg/dL Assessment and Plan (1) Biliary colic: Status: Acute Plan 54-year-old female with epigastric right upper quadrant pain little under 24 hours nausea and vomiting normal labs ultrasound consistent with biliary colic with large gallstone. Plan to carry out laparoscopic cholecystectomy after admission NPO IV fluids IV antibiotics. She understands and agrees with the above plan. Risks and benefits were discussed with the patient including but not limited to bleeding infection possible open procedure possible bile duct injury possible organ injury possible bile leak despite this she wishes to proceed Quality Stroke Does the patient have a stroke diagnosis?: No VTE Prior VTE?: No VTE Risk Level:: Surgical - low VTE Device Contraindication: N/A - Device Ordered VTE Drug Contraindication: N/A - Med Ordered Procedures Date of Service Date of Service: 11/18/24
--- NOTE | 2024-11-18 14:25 | HO.ANESPROP2 ---
[facility] Active Problems Active Problems: All Active Problems Biliary colic (Acute) Osteoarthritis of left knee (Acute) Painful arc syndrome of left shoulder (Acute) Past Medical History Medical History Sleep apnea Asthma Hyperthyroidism Functional capacity: independent ambulation Patient : No Family History Family history of problems with anesthesia: No Surgical History Surgical History Hx of section Hx of appendectomy History of Problems with Anesthesia: No Social History Social History Alcohol intake: current Alcohol intake frequency: a few times a week Patient Tobacco Use Status: Never used Tobacco Substance Use Type: Crack/Cocaine Current occupational status: disabled Current occupation: rt hand Meds Allergies Allergy/AdvReac Type Severity Reaction Status Date / Time paroxetine (From PAXIL) Allergy Intermediate VIOLENT Verified 11/18/24 05:33 Active Medications: Current Medications Hydromorphone HCl (Hydromorphone Hcl 1 Mg/Ml Syringe) 1 mg IVPUSH Q3H PRN; Protocol PRN Reason: Pain, Severe (Pain Scale 7-10) Last Admin: 11/18/24 12:30 Dose: 1 mg Lactated Ringer's (Lr) 1,000 mls @ 80 mls/hr IVCONT .[id number] AARON Last Admin: 11/18/24 11:15 Dose: 80 mls/hr Piperacillin Sod/Tazobactam (Sod 3.375 gm/ Sodium Chloride) 50 mls @ 100 mls/hr IV Q6H AARON Ondansetron HCl (Ondansetron Hcl 4 Mg/2 Ml Vial) 4 mg IVPUSH Q8H PRN PRN Reason: Nausea and Vomiting Last Admin: 11/18/24 12:30 Dose: 4 mg Sodium Chloride (0.9 % Sodium Chloride Flush 3 Ml Syringe) 3 ml IVFLUSH QSHIFT AARON Last Admin: 11/18/24 13:24 Dose: Not Given Home Medications ?Medication ?Instructions ?Recorded ?Confirmed ?Last Taken ?Type albuterol sulfate 2.5 mg/3 mL 2.5 mg inhalation QID PRN 08/28/21 11/18/24 Unknown History (0.083 %) solution for nebulization Shortness Of Breath Or Wheezing cyclobenzaprine 10 mg tablet 10 mg PO BID PRN Muscle Spasm 08/28/21 11/18/24 Unknown History esomeprazole magnesium 20 mg 20 mg PO DAILY 08/28/21 11/18/24 11/17/24 History capsule,delayed release ferrous sulfate 325 mg (65 mg 325 mg PO Q48H 08/28/21 11/18/24 11/17/24 History iron) tablet (FeroSul) lidocaine 5 % topical patch 1 patch topical DAILY PRN Pain 08/28/21 11/18/24 Unknown History (Lidoderm) naproxen 500 mg tablet 500 mg PO BID PRN Pain 08/28/21 11/18/24 Unknown History sertraline 50 mg tablet 50 mg PO DAILY 08/28/21 11/18/24 11/17/24 History albuterol sulfate 90 mcg/actuation 2 puff inhalation Q4-6H PRN 11/18/24 11/18/24 Unknown History aerosol inhaler (Ventolin HFA) Shortness Of Breath Or Wheezing atorvastatin 10 mg tablet 10 mg PO DAILY 11/18/24 11/18/24 11/17/24 History hydrochlorothiazide 12.5 mg tablet 12.5 mg PO DAILY 11/18/24 11/18/24 11/17/24 History loperamide 2 mg tablet 2 mg PO TIDWM PRN Loose Stool 11/18/24 11/18/24 Unknown History metoprolol succinate 50 mg 50 mg PO DAILY 11/18/24 11/18/24 11/17/24 History tablet,extended release 24 hr Exam Height,Weight and Vital Signs: Height 5 ft 2 in Weight 83.915 kg Last Vital Signs Temp 98.0 F 11/18/24 11:18 Pulse 67 11/18/24 11:18 Resp 20 11/18/24 11:18 BP 169/96 H 11/18/24 11:18 Pulse Ox 93 11/18/24 11:18 O2 Del Method Room Air 11/18/24 11:18 Pertinent Lab Results Pertinent Lab Results: nLaboratory Tests 11/18/24 11/18/24 05:41 06:14 WBC 6.6 RBC 4.76 Hgb 14.1 Hct 40.6 MCV 85.3 MCH 29.6 MCHC 34.7 RDW 13.4 Plt Count 212 MPV 10.6 Immature Gran % (Auto) 0.3 Neut % (Auto) 67.7 Lymph % (Auto) 21.7 [place] % (Auto) 7.3 Eos % (Auto) 2.4 Baso % (Auto) 0.6 Lymph # (Auto) 1.4 [place] # (Auto) 0.5 Eos # (Auto) 0.2 Baso # (Auto) 0.0 Abs Immat Gran (auto) 0.02 Absolute Neuts (auto) 4.5 Absolute Nucleated RBC 0.000 Nucleated RBC % (auto) 0.0 Sodium 141 Potassium 4.0 Chloride 106 Carbon Dioxide 26 Anion Gap 13 BUN 11 Creatinine 0.71 Estim Creat Clear Calc 93.1 Estimated GFR > 60 Random Glucose 153 H Calcium 9.5 Magnesium 2.0 Total Bilirubin 0.3 AST 23 ALT 27 Alkaline Phosphatase 84 Troponin I High Sens < 2.7 Total Protein 7.5 Albumin 4.2 Lipase 32 Urine Color Yellow Urine Appearance Cloudy Urine pH 8.0 Ur Specific [place] 1.025 Urine Protein 100 (2+) H Urine Glucose (UA) Negative Urine Ketones Negative Urine Blood Negative Urine Nitrite Negative Ur Leukocyte Esterase Negative Urine RBC 0-2 Urine WBC 0-5 Ur Squamous Epith Cells 0-2 Urine Bacteria None Seen Hyaline Casts 0-2 Airway Mallampati Class: III TM Dist: >3cm Neck ROM: Full Heart: RRR Lungs: CTA Assessment and Plan Assessment Anesthesia Assessment: Anesthesia Plan Discussed and Chart Reviewed Final Anesthetic Review Family History of Problems with Anesthesia: No History of Problems with Anesthesia: No ASA Class: II and Emergency Final Preanesthetic Review: Meds/Allgs Chart Reviewed, Consent Obtained/Reviewed and Anes Risks/Benef Reviewed Patient Risk: Intermediate Procedure Risk: Intermediate Anesthetic Plan Anesthetic Plan: GA Disposition: Standard PACU
--- NOTE | 2024-11-18 14:57 | PC.NURSE ---
report given to SENIOR TECHNICAL PROGRAM MANAGER
--- NOTE | 2024-11-18 19:28 | W.PM.OPN ---
Operative Note Operative Note Date of Service: 11/18/24 Narrative: Preop diagnosis-biliary colic Postop diagnosis--biliary colic and cholelithiasis and acute cholecystitis Procedure--laparoscopic cholecystectomy Surgeon--Alfreda Anesthesia--general endotracheal tube anesthesia Patient is a 54-year-old female came into the emergency room complaining of epigastric abdominal pain nausea and vomiting labs were within normal limits but she was extremely tender and having significant pain. Ultrasound showed thickening of the gallbladder and a hard impacted large gallstone. As a result it was decided to admit her and go to the OR for laparoscopic cholecystectomy Findings--thickened inflamed gallbladder findings consistent with acute on chronic cholecystitis and cholelithiasis. Procedure-- Patient was brought to the operative room under Anesthesia guidance was intubated. She had compression stockings placed before induction received preoperative antibiotics. Her abdomen was prepped and draped in standard surgical fashion. An infraumbilical incision was created after numbing up the area with a 0.25% Marcaine with epinephrine. Dissection was carried down to the anterior abdominal wall fascia which was grasped with Jeffery's and transected. 0 Vicryl pursestring suture placed. Valles trocar was introduced and pneumoperitoneum established to 15 mmHg pressure. Three 5 mm ports were then placed under direct visualization using local 1 in the epigastric area and 2 in the right upper quadrant area. The gallbladder was identified and was noted to be very thickened inflamed intense. It was decompressed with needle decompression and some thin bilious material was removed. The gallbladder is now able to be grasped and retracted superiorly and laterally. In the process of the beginning of the case our camera was not working well with poor imaging and as a result the scope was changed and now we had better visualization. The cystic duct was identified and the cystic artery was somewhat identified underneath a very enlarged lymph node. Two clips were placed on the bottom of the cystic duct and 1 up and this was then transected. This duct went directly into the gallbladder then the cystic artery was dissected out little better and clipped 1 down and 1 up and transected. Then using the hook cautery the gallbladder was removed from the liver bed. It peeled off with a little bit of traction easily and left a little bit more of a raw surface on the bed. The area was cauterized little bit. In the process of trying to grasp and retract the gallbladder it and also decompressing it there was a tear and 1 large stone came out. Now getting a bag in from the infraumbilical port site the gallbladder and the stone was removed and sent off for pathology. Suctioned and irrigation and trying to get good hemostasis with a raw liver bed which oozed moderately at times. Some Surgicel was placed and kept in place for awhile. Eventually this was removed and the bed looked better. The cystic duct stump and artery clips looked intact and fine. A KENDAL drain was left in the gallbladder fossa and secured at the end of the case. The ports were then removed under direct visualization and the infraumbilical incision was closed with a figure if a 0 Vicryl suture. The other suture in place was cut while trying to extend the fascia in order to get the gallbladder and that is large stone out. Good closure was had here now. Skin incision was closed with Polysorb. At the end of the case all sponge instrument needle counts were correct estimated blood loss was about 30 cc specimens sent was the gallbladder with a gallstone. Patient was extubated returned stable to the recovery room.
--- NOTE | 2024-11-18 23:37 | PC.NURSE ---
Pt requesting melatonin, no order. Dr. Gant messaged, told this RN to place telephone order for ONCE 6mg order of melatonin.
[2024-11-18] MEDS: oxyCODONE HCl Immed Release 5 MG TABLET 10 MG PO (23:48)
--- NOTE | 2024-11-19 01:21 | PC.NURSE ---
umbilicus dsg leaking, Dr. Gant notified, and asked to change it, this RN allowed to change dsg with new gauze and tegaderm, new Dsg CDI.
[2024-11-19 03:53] VITALS: BP 115/58; PULSE 86; RESP 18; TEMP 36.2
[2024-11-19] MEDS: Lactated Ringers 1,000 ML 80 ML IVCONT (04:22)
[2024-11-19 07:50] VITALS: BP 139/75; PULSE 85; RESP 18; TEMP 36.3; O2SAT 95
[2024-11-19] MEDS: Metoprolol Succinate ER 50 MG TAB.ER.24H PO (08:33)
[2024-11-19] MEDS: 0.9 % Sodium Chloride Flush 3 ML SYRINGE IVFLUSH (08:34)
[2024-11-19] MEDS: oxyCODONE HCl Immed Release 5 MG TABLET 10 MG PO ×2 (08:34→14:41)
[2024-11-19 11:59] VITALS: BP 115/65; PULSE 78; RESP 18; TEMP 36.5; O2SAT 96
[2024-11-19 14:58] VITALS: BP 122/67; PULSE 83; RESP 18; TEMP 36.8; O2SAT 96
--- NOTE | 2024-11-19 15:14 | MHC.CM.PN ---
Addendum entered by Shelbi Baldwin 11/19/24 16:02: PT CLEARED TO DC HOME TODAY WITH NO SERVICES VIA LY Original Note: PT REPORTS SHE LIVES WITH HER S/O AND IS INDEPENDENT WITH CARE SHE HAS A CANE FOR DME SHE IS ACTIVE WITH [facility] FOR MOW ONLY DECLINES A HCP PCP: SANDRA ZHANG DCP: HOME VIA [facility]
--- NOTE | 2024-11-19 15:45 | PM.DS ---
DS: Providers Provider Date of Service: 11/19/24 Date of admission: 11/18/24 10:52 Date of discharge: 11/19/24 Primary care physician: Leidy House MD Admitting clinician: Susanna Gant Attending physician on discharge: Susanna Gant DS: Diagnosis Discharge Diagnosis (1) Biliary colic: Start date: 11/18/24 Status: Acute DS: Summary Hospital Course Hospital Course: Pt presented with right upper quadrant pain normal lfts and wbc and u/s showing large impacted gallstone - went to OR for biliary colic and changes consistent with cholecystitis acute on chronic noted. did well s/p lap jaylin and d/c home POD#1 doing well with po pain meds Time Attestation Discharge Coordination Time (in mins): 20 Quality: Safe Use of Opioids Does Pt have an Active Cancer Diagnosis on the Problem List?: No Quality: Stroke Does the patient have a stroke diagnosis?: No Physical Exam Vital Signs: Vital Signs: Last Vital Signs Temp 98.2 F 11/19/24 14:58 Pulse 83 11/19/24 14:58 Resp 18 11/19/24 14:58 BP 122/67 11/19/24 14:58 Pulse Ox 96 11/19/24 14:58 O2 Del Method Room Air 11/19/24 14:58 BMI result Body Mass Index 34.9 DS: Data Data Completed and Pending Pending studies at discharge: Pending at discharge 11/18/24 16:49 Surgical [PTH] Routine Discharge Plan Discharge Anticipated Discharge Date/Time: 11/19/24 16:30 Patient Disposition: Home, Self-Care Discharge Diagnosis: cholecystitis and biliary colic Referrals: Leidy House MD [Primary Care Provider, Internal Medicine] - 1 Week Discharge Medications: New docusate sodium 100 mg Capsule 100 mg PO BID PRN (Reason: Constipation) Qty: 20 0RF oxycodone 5 mg Tablet 10 mg PO Q4H PRN (Reason: Pain, Moderate(Pain Scale 4-6)) Qty: 18 0RF Rx Instructions: Partial Fill upon patient request. Continued atorvastatin 10 mg tablet 10 mg PO DAILY albuterol sulfate [Ventolin HFA] 90 mcg/actuation HFA aerosol inhaler 2 puff INHALATION Q4-6H PRN (Reason: Shortness Of Breath Or Wheezing) hydrochlorothiazide 12.5 mg tablet 12.5 mg PO DAILY loperamide 2 mg Tablet 2 mg PO TIDWM PRN (Reason: Loose Stool) metoprolol succinate 50 mg tablet extended release 24 hr 50 mg PO DAILY cyclobenzaprine 10 mg tablet 10 mg PO BID PRN (Reason: Muscle Spasm) ferrous sulfate [FeroSul] 325 mg (65 mg iron) tablet 325 mg PO Q48H esomeprazole magnesium 20 mg capsule,delayed release(DR/EC) 20 mg PO DAILY naproxen 500 mg tablet 500 mg PO BID PRN (Reason: Pain) lidocaine [Lidoderm] 5 % adhesive patch,medicated 1 patch topical DAILY PRN (Reason: Pain) sertraline 50 mg tablet 50 mg PO DAILY Discontinued albuterol sulfate 2.5 mg /3 mL (0.083 %) solution for nebulization 2.5 mg inhalation QID PRN (Reason: Shortness Of Breath Or Wheezing) Discharge Orders: Discharge Order (Routine); Ordered 11/19/24 Ordered By: Susanna Gant Activity on Discharge: No heavy lifting Stand Alone Forms: Patient Portal Discharge page Print Language: Welsh Care Plan Goals: pt to eat light diet low fat , slow increase in activity, keep dressing on and dry until wednesday then can take down and get the aea wet Health Concerns: fever chills strong abdominal pain call the surgical office or liz to the ER if after hours Plan of Treatment: increase diet and ambulate and wean off pain meds Assessment: doing well s/p lap jaylin -drain removal plan for dc slow advance diet and activity Patient Instructions: Biliary Colic (ED)
== END 2024-11-19 16:10 | disposition home or self-care (01) | DRG 263 ==
LOC: HO.ED 10:43 → HO.EDOVER 11:00 → HO.S3 16:15
PROVIDERS: Emergency Medicine; Admitting Provider Surgery; Emergency Provider Emergency Medicine; PCP General Practice; Visit Provider Surgery
PROC: 0FT44ZZ Resection of Gallbladder, Percutaneous Endoscopic Approach (ICD-10-PCS; CPT 47562; principal; 2024-11-18 15:30)
DX: K80.66 Calculus of gallbladder and bile duct with acute and chronic cholecystitis without obstruction (principal); Z79.899 Other long term (current) drug therapy
CPT/HCPCS: 47562; 36415; 76705; 80053; 81001; 83690; 83735; 84484; 85025; 88304; 93005; 99285; J0131; J1100; J1171; J2003; J2004; J2250; J2270; J2405; J2543; J2704; J3010; J7120

== ENCOUNTER → 2024-11-18 05:26 | Outpatient (BNV) | payer MEDICAID, SELFPAY | PROVIDERS: Admitting Provider Surgery; Emergency Provider Emergency Medicine; PCP General Practice; Visit Provider Internal Medicine Cardiovascular Disease | DX: R10.11 Right upper quadrant pain (principal) | CPT/HCPCS: 93010 ==

== ENCOUNTER → 2024-11-18 05:55 | Outpatient (BNV) | payer MEDICAID, SELFPAY | PROVIDERS: Admitting Provider Surgery; Emergency Provider Emergency Medicine; PCP General Practice; Visit Provider Radiology Diagnostic Radiology | DX: K80.20 Calculus of gallbladder without cholecystitis without obstruction (principal) | CPT/HCPCS: 76705 ==

== ENCOUNTER → 2024-11-18 10:52 | Outpatient (BNV) | payer MEDICAID, SELFPAY | PROVIDERS: Admitting Provider Surgery; Emergency Provider Emergency Medicine; PCP General Practice; Visit Provider Surgery | DX: K80.50 Calculus of bile duct without cholangitis or cholecystitis without obstruction (principal) | CPT/HCPCS: 47562; 99024; 99222 ==

== ENCOUNTER 2024-11-27 12:22 | Outpatient (AMB) | payer MEDICAID, SELFPAY ==
--- NOTE | 2024-11-27 12:24 | MHC.OFFVIS ---
Vital Signs 11/27/24 12:36 Height 5 ft 2 in Weight 186 lb BMI 34.0 BP 172/92 H Blood Pressure Location Lt brachial Position Sitting Pulse 76 Intake Visit Reasons: s/p lap jaylin Intake Note: Patient is seen in office for post op assessment post laparoscopic cholecystectomy. Pt c/o: admits to sore, tender and pain surgery:11/18/24 Level Vial Grinder Required: No Accompanied by: Family/Other Allergies paroxetine (From PAXIL) Allergy (Intermediate, Verified 11/27/24 12:36) VIOLENT Medication List - Last Reconciled 11/27/24 by Nabeel Rick MD albuterol sulfate 90 mcg/actuation (Ventolin HFA) 2 puffs inhalation Q4-6H PRN atorvastatin 10 mg PO DAILY cyclobenzaprine 10 mg PO BID PRN docusate sodium 100 mg PO BID PRN esomeprazole magnesium 20 mg PO DAILY ferrous sulfate (FeroSul) 325 mg PO Q48H hydrochlorothiazide 12.5 mg PO DAILY lidocaine 5% (Lidoderm) 1 patch topical DAILY PRN loperamide 2 mg PO TIDWM PRN metoprolol succinate ER 50 mg PO DAILY naproxen 500 mg PO BID PRN oxycodone 5 mg PO BID PRN sertraline 50 mg PO DAILY HPI Comments Details: 54-year-old female patient returning 1 week following laparoscopic cholecystectomy for acute cholecystitis. She reports some soreness at the periumbilical incision. She denies any nausea or vomiting. REPLACED BY [facility] Medical History Sleep apnea Asthma Hyperthyroidism Surgical History S/P laparoscopic cholecystectomy Hx of section Hx of appendectomy Social History Household Members: Significant Other Housing: House Alcohol intake: current Alcohol intake frequency: a few times a week Patient Tobacco Use Status: Never used Tobacco Second Hand Smoke Exposure: No Substance Use Type: Crack/Cocaine service: No Current occupational status: disabled Current occupation: rt hand Physical Exam Vital Signs: Last Vital Signs Pulse 76 11/27/24 12:36 BP 172/92 H 11/27/24 12:36 BMI result Body Mass Index 34.0 Const General: no acute distress Nutritional Appearance: well nourished Orientation/consciousness: patient oriented x3 Resp Effort & Inspection: normal respiratory effort GI Other: Trocar incisions are clean, dry, and intact. Suture at the umbilicus was removed and the wounds found to be well healed. Inspection: Yes Abdominal panniculus present Neuro General: patient oriented x3 Extrem Other: No edema Assessment & Plan Assessment & Plan (1) Biliary colic: Code(s): K80.50 - Calculus of bile duct without cholangitis or cholecystitis without obstruction Category: Medical (2) S/P laparoscopic cholecystectomy: Code(s): Z90.49 - Acquired absence of other specified parts of digestive tract Category: Surgical Plan 54-year-old female status post laparoscopic cholecystectomy for acute cholecystitis returning for postop visit. Her wounds are clean, dry, and intact. She still has some pain associated with the umbilical incision. She should remain on a low-fat diet and avoid lifting greater than 10 lb for 1 more week. She should return as needed. Medications: New oxycodone Partial Fill upon patient request. 5 mg PO BID PRN 14 tabs 0RF pain K80.50 - Calculus of bile duct without cholangitis or cholecystitis without obstruction, Z90.49 - Acquired absence of other specified parts of digestive tract Coding Level of Care Code Global (48365) Diagnoses Biliary colic K80.50 S/P laparoscopic cholecystectomy Z90.49
[2024-11-27 12:36] VITALS: BP 172/92; PULSE 76; BMI 34.0
--- OUTSIDE RECORDS SUMMARY | 2024-11-27 12:54 | XMS_ITS | Clinical Summary ---
Author Organization [facility] ity Address [address] [place] [address] Care Team Providers Care Finger Lift Operator Name Role Phone Unavailable Primary Care Provider Unavailabl e Social History Tobacco Use Types Packs/Day Years Used Date Smoking Tobacco: Never Assessed Comments Unknown Sex and Gender Information Value Date Recorded Sex Assigned at Not on file Legal Sex Female 12:13 PM EST Gender Identity Not on file Sexual Orientation Not on file Plan of Treatment Health Maintenance Due Date Last Done Comments Breast Cancer Screening 1970 DTaP,Tdap,and Td Vaccines (1 - Tdap) 01/01/1991 Hepatitis B Vaccines (1 of 3 - 19+ 3-dose series) 01/01/1991 Cervical Cancer Screening: P ap Smear 01/01/1993 Pneumococcal Vaccine: 50+ Ye ars (1 of 1 - PCV) 01/01/2022 Zoster Vaccines (1 of 2) 01/01/2022 COVID-19 Vaccine ( - 2023-2 5 season) 2023 Depression Screening 04/26/2024 Influenza Vaccine (#1) 2024 HIB Vaccines Aged Out No longer eligi ble based on patient's age to complete this topic HPV Vaccines Aged Out No longer eligi ble based on patient's age to complete this topic Hepatitis A Vaccines Aged Out No long er eligible based on patient's age to complete this topic IPV Vaccines Aged Out No longer eligi ble based on patient's age to complete this topic MMR Vaccines Aged Out No longer eligi ble based on patient's age to complete this topic Meningococcal ACWY Vaccine Aged Out N o longer eligible based on patient's age to complete this topic Meningococcal B Vaccine Aged Out No l onger eligible based on patient's age to complete this topic RSV Immunization Patients Un suleman 20 months Aged Out No longer eligible b ased on patient's age to complete this topic Varicella Vaccines Aged Out No longer eligible based on patient's age to complete this topic
--- OUTSIDE RECORDS SUMMARY | 2024-11-27 12:54 | XMS_ITS | Encounter Summary ---
Author Organization [employer] Address [address] [place] [address] Care Team Providers Care Cardiac Rn Name Role Phone Leidy House MD Primary Care Provider [phone] Reason for Visit * Reason Onset Date Comments Durable Medical Equipment 10/19/2023 Encounter Details Date Type Department Care Team ([facility] Contact Info) Description 10/19/2023 Telephone [facility] MEDICINE [address] [place] [address] Leidy House MD [address] [place] [address] Durable Medical Equipment Social History Tobacco Use Types Packs/Day Years Used Date Smoking Tobacco: Every Day Cigarettes Smokeless Tobacco: Never Alcohol Use Standard Drinks/Week Comments Yes 10 (1 standard drink = 0.6 oz pure alcohol) drinks one 3oz nip 2x a week and two 25oz cans of malt liquor beer 3-4x per week. Depression Answer Date Recorded Patient Health Questionnaire-9 Score 12 09/06/2023 Patient Health Questionnaire-9 Score 12 09/06/2023 Last PHQ-9: Questionnaire Data Not on file 0 09/06/2023 Housing Stability Answer Date Recorded What is your housing situation today? I have serina altamirano 08/27/[address] you li ve. Do you have problems with any of the following? None of the above;Pests such as bugs, ants, or mice 08/27/2023 Food Insecurity Answer Date Recorded Within the past 12 months, y ou worried that your food would run out before you got money to buy more: Never True 02/22/2023 Within the past 12 months,th e food you bought just didn't last and you didn't have enough money to get more: Never True Transportation Answer Date Recorded In the past 12 months, has l ack of transportation kept you from medical appts, meetings, work or from getting things needed for daily living? No 08/27/2023 Utilities Answer Date Recorded In the past 12 months, has t he electric, gas, oil or water company threatened to shut off services in your home? No 08/27/2023 Depression Answer Date Recorded Patient Health Questionnaire-2 Score 5 09/06/2023 Comments Unknown Sex and Gender Information Value Date Recorded Sex Assigned at Female 02/23/2022 10:31 AM EDT Legal Sex Female 10:31 AM EDT Gender Identity Female 02/23/2022 10:31 AM EDT Sexual Orientation Straight 01/12/2024 12 :19 PM EDT Sexual Orientation Lesbian or [place] 01/12/2024 12 :19 PM EDT documented as of this encounter Miscellaneous Notes * Telephone Encounter - Lisa Hoffman - 01/31/2024 1:45 PM EDT Tc from pt requesting status on cpap machine. States has contacted [facility] but they do not have script. Please call pt to clarify. * Telephone Encounter - Naman Roldan - 10/19/2023 11:21 AM EDT Tc from pt requesting status on Cpap machine. Please contact pt at [phone]. documented in this encounter Plan of Treatment Upcoming Encounters Date Type Department Care Team (Late st Contact Info) Description 12/12/2024 10:45 AM EDT Office Visit [facility] MEDICINE [address] [place] [address] Alyse Mcdermott MD [address], [place] [phone] documented as of this encounter Visit Diagnoses Not on filedocumented in this encounter Additional Health Concerns Assessment Noted Time PHQ-9 Depression Total Score: 12 024 2:48 PM EDT documented as of this encounter Care Teams Cardiac Rn Relationship Specialty Start Date End Date Leidy House MD [address] [place] [address] PCP - General Family Medicine 02/29/20 Tracey Roldan Dag CoaterExhauster Engineer 04/28/23 Tracey Roldan Dag CoaterExhauster Engineer 06/29/24 documented as of this encounter
== END 2024-11-27 13:17 | disposition home or self-care (01) ==
LOC: HO.HGS 12:23
PROVIDERS: PCP General Practice; Visit Provider Surgery
DX: K80.50 Calculus of bile duct without cholangitis or cholecystitis without obstruction (principal); Z90.49 Acquired absence of other specified parts of digestive tract
CPT/HCPCS: 99024

== ENCOUNTER → 2024-11-27 12:22 | Outpatient (BNVA) | payer MEDICAID, SELFPAY | PROVIDERS: PCP General Practice; Visit Provider Surgery | DX: K80.50 Calculus of bile duct without cholangitis or cholecystitis without obstruction (principal); Z90.49 Acquired absence of other specified parts of digestive tract | CPT/HCPCS: 99212 ==

== ENCOUNTER 2024-12-05 06:08 | Emergency (ER) | payer MEDICAID, SELFPAY ==
[2024-12-05] VITALS (7 sets, daily range): BP systolic 106–138; BP diastolic 55–90; PULSE 71–81; RESP 16–18; TEMP 36.6–37.1; O2SAT 96–99; BMI 35.4
[2024-12-05 06:52] LABS: Hematocrit 39.1 % (37.0-47.0); Hemoglobin 12.9 g/dl (12.0-16.0); Mean Corpuscular HGB Conc 33.0 g/dl (31.0-35.0); Mean Corpuscular Hemoglobin 29.3 pg (27.0-33.0); Mean Corpuscular Volume 88.7 fL (80.0-98.0); NRBC Abs Auto 0.000 X10*3/uL (0.0-0.012); NRBC Pct Auto 0.0 /100WBC (0.0-0.2); Platelet Count 249 X10*3/uL (160-400); Red Blood Count 4.41 X10*6/uL (4.20-5.50); White Blood Count 5.6 X10*3/uL (4.8-10.8)
[2024-12-05 07:06] LABS: Alanine Aminotransferase 35 U/L (0-31); Albumin Level 4.1 g/dL (3.5-5.0); Alkaline Phosphatase 85 U/L (39-117); Anion Gap 13 (12-20); Aspartate Amino Transferase 34 U/L (5-31); Blood Urea Nitrogen 7 mg/dL (9-16); Calcium 8.6 mg/dL (8.4-10.2); Carbon Dioxide 25 mmol/L (22-29); Chloride 112 mmol/L (96-108); Creatinine Clr Calc Pharmacy 89.1; Estimated Glomerular Filt Rate > 60; Magnesium 1.9 mg/dL (1.6-2.6); Potassium 3.6 mmol/L (3.3-5.1); Sodium 146 mmol/L (135-145); Total Protein 7.4 g/dL (6.5-8.0)
--- NOTE | 2024-12-05 07:12 | PC.NURSE ---
Pt A&O X4 VSS Pt on phone. Pt appears in NAD at this time.
--- NOTE | 2024-12-05 07:32 | PC.NURSE ---
Pt A&O X4 VSS NAD. See H2T assessment notes.
--- OUTSIDE RECORDS SUMMARY | 2024-12-05 07:34 | XMS_ITS | Clinical Summary ---
Author Organization [facility] ity Address [address] [place] [address] Care Team Providers Care Corn Detasseler Machine Operator Name Role Phone Unavailable Primary Care [...]
--- OUTSIDE RECORDS SUMMARY | 2024-12-05 07:34 | XMS_ITS | Encounter Summary ---
Author Organization [employer] Address [address] [place] [address] Care Team Providers Care Long Line Teamster Name Role Phone Leidy House MD Primary Care Provider [phone] Reason for Visit * Reason Onset Date Comments Durable Medical Equipment 10/19/2023 Encounter Details Date Type Department Care Team ([facility] Contact Info) Description 10/19/2023 Telephone [facility] MEDICINE [address] [place] [address] Leidy House MD [address] [place] [address] Durable Medical Equipment Social History Tobacco Use [...] on Cpap machine. Please contact pt at [phone]. documented in this encounter Plan of Treatment Upcoming Encounters Date Type Department Care Team (Late st Contact Info) Description 12/12/2024 10:45 AM EDT Office Visit [facility] MEDICINE [address] [place] [address] Alyse Mcdermott MD [address] [place], [place] [phone] documented as of this encounter Visit Diagnoses Not on filedocumented in this encounter Additional Health Concerns Assessment Noted Time PHQ-9 Depression Total Score: 12 024 2:48 PM EDT documented as of this encounter Care Teams Long Line Teamster Relationship Specialty Start Date End Date Leidy House MD [address] [place] [address] PCP - General Family Medicine 02/29/20 Tracey Roldan Diesel TechnicianRecreation Worker 04/28/23 Tracey Roldan Diesel TechnicianRecreation Worker 06/29/24 documented as of this encounter
--- NOTE | 2024-12-05 07:57 | ECG_ITS ---
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 Rate : 72 BPM Atrial Rate : 72 BPM P-R Int : 148 ms QRS Dur : 80 ms QT Int : 420 ms P-R-T Axes : 70 17 41 degrees QTcB Int : 459 ms Normal sinus rhythm Possible Left atrial enlargement Borderline ECG When compared with ECG of 18-Nov-2024 05:31, No significant change was found Referred By: Maria A Beltran Electronically Signed By: Schuyler Morgan
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
[2024-12-05 08:22] LABS: Troponin-I High Sensitivity 3.0 ng/L (<3.5-17.0)
[2024-12-05] MEDS: oxyCODONE HCl Immed Release 5 MG TABLET 10 MG PO (08:24)
[2024-12-05 08:44] LABS: Lipase 35 U/L (8-78)
[2024-12-05 09:01] LABS: Appearance Urine Clear; Glucose Urine UA Negative (Negative); PH 5.5 (5.0-9.0); Specific Gravity - Urine 1.015 (1.005-1.025); UMIC TRIGGER UACC YES
[2024-12-05 09:14] LABS: Cannabinoid Screen Urine Not Detected (Not Detect)
== END 2024-12-05 12:20 | disposition home or self-care (01) ==
PROVIDERS: Emergency Provider Emergency Medicine; PCP General Practice
DX: S31.104A Unspecified open wound of abdominal wall, left lower quadrant without penetration into peritoneal cavity, initial encounter (principal); X58.XXXA Exposure to other specified factors, initial encounter; F14.10 Cocaine abuse, uncomplicated; F10.19 Alcohol abuse with unspecified alcohol-induced disorder; Y90.6 Blood alcohol level of 120-199 mg/100 ml; Z90.49 Acquired absence of other specified parts of digestive tract; I10 Essential (primary) hypertension; E78.5 Hyperlipidemia, unspecified; J45.909 Unspecified asthma, uncomplicated; G89.29 Other chronic pain; R10.32 Left lower quadrant pain; Y93.9 Activity, unspecified; Y92.9 Unspecified place or not applicable; Y99.9 Unspecified external cause status
CPT/HCPCS: 36415; 80053; 80307; 81001; 81003; 83690; 83735; 84484; 85027; 86140; 93005; 99285

== ENCOUNTER → 2024-12-05 07:57 | Outpatient (BNV) | payer MEDICAID, SELFPAY | PROVIDERS: Emergency Provider Emergency Medicine; PCP General Practice; Visit Provider Internal Medicine Cardiovascular Disease | DX: F14.10 Cocaine abuse, uncomplicated (principal) | CPT/HCPCS: 93010 ==

== ENCOUNTER → 2025-01-22 19:30 | Outpatient (BNV) | payer MEDICAID, SELFPAY | PROVIDERS: PCP General Practice; Visit Provider Internal Medicine | DX: G47.33 Obstructive sleep apnea (adult) (pediatric) (principal); R06.83 Snoring | CPT/HCPCS: 95810 ==

== ENCOUNTER → 2025-01-22 19:30 | Outpatient (REF) | payer MEDICAID, SELFPAY ==
--- OUTSIDE RECORDS SUMMARY | 2025-01-22 21:33 | XMS_ITS | Encounter Summary ---
Author Organization [employer] Address [address] [place] [address] [address] [place] [address] Care Team Providers Care Manager Mail Name Role Phone Leidy House MD Primary Care Provider [phone] Encounter Details Date Type Department Care Team (Late st Contact Info) Description 07/01/2022 Orders Only [facility] MEDICINE [address] [place], [place] [phone] Leidy House MD [address] [place] [address] [phone] Diarrhea, unspecified type (Primary Dx) Social History Tobacco Use Types Packs/Day Years [...] PM EDT documented as of this encounter Plan of Treatment Not on file documented as of this encounter Visit Diagnoses Diagnosis Diarrhea, unspecified type- Primary documented in this encounter Care Teams Manager Mail Relationship Specialty Start Date End Date Leidy House MD [address] [place] [address] [phone] PCP - General Family Medicine 02/29/20 Tracey Roldan Paid InternHvac Operations Technician 04/28/23 Tracey Roldan Paid InternHvac Operations Technician 06/29/24 documented as of this encounter
--- OUTSIDE RECORDS SUMMARY | 2025-01-22 21:33 | XMS_ITS | Encounter Summary ---
Author Organization [employer] Address [address] [facility] [address]t [place] [address] Care Team Providers Care Metallurgical Tester Name Role Phone Leidy House MD Primary Care Provider [phone] Reason for Visit * Reason Onset Date Comments Hospital Follow-up 11/22/2024 Encounter Details Date Type Department Care Team ([facility] Contact Info) Description 11/22/2024 Telephone [facility] MEDICINE [address] [place] [address] Leidy House MD [address] [place] [address] Hospital Follow-up Social History Tobacco Use Types Packs/Day Years [...] housing situation today? I have serina altamirano 11/22/[address] you li ve. Do you have problems with any of the following? Mold;Pests such as bugs, ants, or mice 11/22/2024 Food Insecurity Answer Date Recorded Within the past 12 months, y ou worried that your food would run out before you got money to buy more: Never True 11/22/2024 Within the past 12 months,th e food you bought just didn't last and you didn't have enough money to get more: Never True Transportation Answer Date Recorded In the past 12 months, has l ack of transportation kept you from medical appts, meetings, work or from getting things needed for daily living? No 11/22/2024 Utilities Answer Date Recorded In the past 12 months, has t he electric, gas, oil or water company threatened to shut off services in your home? No 11/22/2024 Depression Answer Date Recorded Patient Health Questionnaire-2 Score 5 09/06/2023 Internet Access Answer Date Recorded Internet Access Q1 Yes 11/22/2024 Internet Access Q2 Not on file 11/22/2024 Comments Unknown Sex and Gender Information Value Date Recorded Sex Assigned at Female 02/23/2022 10:31 AM EDT Legal Sex Female 10:31 AM EDT Gender Identity Female 02/23/2022 10:31 AM EDT Sexual Orientation Straight 01/12/2024 12 :19 PM EDT Sexual Orientation Lesbian or [place] 01/12/2024 12 :19 PM EDT documented as of this encounter Miscellaneous Notes * Telephone Encounter - [facility] - 11/22/2024 10:12 AM EDT Tc from pt requesting a HDF appt. Hospital: [facility] Date of admission: 11/18 Discharge date: 11/20 Diagnosed: gallbladder stones *Send message to [facility] Clinical Care Coordinators documented in this encounter Plan of Treatment Not on file documented as of this encounter Visit Diagnoses Not on filedocumented in this encounter Additional Health Concerns Assessment Noted Time PHQ-9 Depression Total Score: 12 024 2:48 PM EDT documented as of this encounter Care Teams Metallurgical Tester Relationship Specialty Start Date End Date Leidy House MD [address] [place] [address] PCP - General Family Medicine 02/29/20 Tracey Roldan Lease Purchase Truck DriverOre Charger 04/28/23 Tracey Roldan Lease Purchase Truck DriverOre Charger 06/29/24 documented as of this encounter
--- OUTSIDE RECORDS SUMMARY | 2025-01-22 21:33 | XMS_ITS | Encounter Summary ---
Author Organization [employer] Address [address] [facility] 7[address] [place] [address] Care Team Providers Care Press Manager Name Role Phone Leidy House MD Primary Care Provider [phone] Reason for Visit * Reason Onset Date Comments Durable Medical Equipment 10/19/2023 Encounter Details Date Type Department Care Team ([facility] Contact Info) Description 10/19/2023 Telephone [facility] MEDICINE [address] [place] [address] Leidy House MD [address] [place] [address] Durable Medical Equipment Social History Tobacco Use [...] from pt requesting status on cpap machine. [facility] has contacted adriana but they do not have script. Please call pt to clarify. * Telephone Encounter - Naman Roldan - 10/19/2023 11:21 AM EDT Tc from pt requesting status on Cpap machine. Please contact pt at [phone]. documented in this encounter Plan of Treatment Not on file documented as of this encounter Visit Diagnoses Not on filedocumented in this encounter Additional Health Concerns Assessment Noted Time PHQ-9 Depression Total Score: 12 024 2:48 PM EDT documented as of this encounter Care Teams Press Manager Relationship Specialty Start Date End Date Leidy House MD [address] [place] [id number] PCP - General Family Medicine 02/29/20 Tracey Roldan Agricultural TechnicianNarrative Writer 04/28/23 Tracey Roldan Agricultural TechnicianNarrative Writer 06/29/24 documented as of this encounter
--- OUTSIDE RECORDS SUMMARY | 2025-01-22 21:33 | XMS_ITS | Encounter Summary ---
Author Organization [employer] Address [address] [facility] [address] [place] [address] Care Team Providers Care Medical Historian Name Role Phone Leidy House MD Primary Care Provider [phone] Reason for Visit * Reason Onset Date Comments triage 07/21/2022 Encounter Details Date Type Department Care Team ([facility] st Contact Info) Description 07/21/2022 Telephone [facility] MEDICINE [address] [place] [address] Leidy House MD [address] [place] [address] triage Social History Tobacco Use Types Packs/Day Years [...] encounter Miscellaneous Notes * Telephone Encounter - Zurdo Moore - 07/21/2022 11:16 AM EDT Symptom: Foot or Ankle Pain - Not From Injury Outcome: Schedule an urgent appointment (within 1 hour) or talk to a nurse or provider soon Reason: Trouble walking The caller accepted this outcome documented in this encounter Plan of Treatment Not on file documented as of this encounter Visit Diagnoses Not on filedocumented in this encounter Care Teams Medical Historian Relationship Specialty Start Date End Date Leidy House MD [address] [place] [address] PCP - General Family Medicine 02/29/20 Tracey Roldan Billiard Table AssemblerPhotographic Enlarger Operator 04/28/23 Tracey Roldan Billiard Table AssemblerPhotographic Enlarger Operator 06/29/24 documented as of this encounter
--- OUTSIDE RECORDS SUMMARY | 2025-01-22 21:33 | XMS_ITS | Encounter Summary ---
Author Organization [employer] Address [address] [facility] [address]t [place] [address] Care Team Providers Care End Frazer Name Role Phone Leidy House MD Primary Care Provider [phone] Reason for Visit * Reason Onset Date Comments PT-1 12/29/2024 Encounter Details Date Type Department Care Team ([facility] Contact Info) Description 12/29/2024 Telephone [facility] MEDICINE [address] [place] [address] Leidy House MD [address] [place] [address] PT-1 Social History Tobacco Use Types Packs/Day Years Used Date Smoking Tobacco: Every Day Cigarettes Passive Smoke Exposure: Current Smokeless Tobacco: Never Alcohol Use Standard Drinks/Week [...] encounter Miscellaneous Notes * Telephone Encounter - Naman Roldan - 12/29/2024 11:52 AM EDT Patient calling requesting PT1 Home Address verified: Y/N: Yes Provider name or facility name: [facility] Facility Address: [address] [place] [address] [place] [address] Escort needed: Yes Do you have a wheelchair: Y/N: No If yes- Manual or electric: N/A (uses Cane) Visits: Once a month documented in this encounter Plan of Treatment Not on file documented as of this encounter Visit Diagnoses Not on filedocumented in this encounter Additional Health Concerns Assessment Noted Time PHQ-9 Depression Total Score: 12 024 2:48 PM EDT documented as of this encounter Care Teams End Frazer Relationship Specialty Start Date End Date Leidy House MD [address] [place] [address] PCP - General Family Medicine 02/29/20 Tracey Roldan Final Touch Up PainterChief Merchandising Officer 04/28/23 Tracey Roldan Final Touch Up PainterChief Merchandising Officer 06/29/24 documented as of this encounter
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
--- OUTSIDE RECORDS SUMMARY | 2025-01-22 21:33 | XMS_ITS | Encounter Summary ---
Author Organization [employer] Address [address] [facility] [address] [place] [address] Care Team Providers Care Client Development Consultant Name Role Phone Leidy House MD Primary Care Provider [phone] Encounter Details Date Type Department Care Team ([facility] Contact Info) Description 12/06/2024 Orders Only [facility] [address] [place] [address] Leidy House MD [address] [place] [address] Social History Tobacco Use Types Packs/Day Years [...] your housing situation today? I have serina adarsh 11/22/[address] you li [...] documented as of this encounter Care Teams Client Development Consultant Relationship Specialty Start Date End Date Leidy House MD [address] [place] [id number] PCP - General Family Medicine 02/29/20 Tracey Roldan Water Main InspectorNon Cdl Driver 04/28/23 Tracey Roldan Water Main InspectorNon Cdl Driver 06/29/24 documented as of this encounter
--- OUTSIDE RECORDS SUMMARY | 2025-01-22 21:33 | XMS_ITS | Encounter Summary ---
Author Organization [employer] Address [address] [facility] [address] [place] [address] Care Team Providers Care Diet Aid Name Role Phone Leidy House MD Primary Care Provider [phone] Reason for Visit * Reason Comments Med Refill Encounter Details Date Type Department Care Team ([facility] Contact Info) Description 05/07/2023 Refill [facility] [address] [place] [address] Leidy House MD [address] [place] [address] Moderate persistent asthma without complication Social History Tobacco Use Types Packs/Day Years [...] as of this encounter Visit Diagnoses Diagnosis Moderate persistent asthma without complication documented in this encounter Additional Health Concerns Assessment Noted Time PHQ-9 Depression Total Score: 9 03/08/20 23 10:32 AM EST documented as of this encounter Care Teams Diet Aid Relationship Specialty Start Date End Date Leidy House MD [address] [place] [id number] PCP - General Family Medicine 02/29/20 Tracey Roldan Press LeaderGlobal Program Manager 04/28/23 Tracey Roldan Press LeaderGlobal Program Manager 06/29/24 documented as of this encounter
--- OUTSIDE RECORDS SUMMARY | 2025-01-22 21:33 | XMS_ITS | Encounter Summary ---
Author Organization [employer] Address [address] [facility] [address] [place] [address] Care Team Providers Care Convention Services Director Name Role Phone Leidy House MD Primary Care Provider [phone] Reason for Visit * Reason Onset Date Comments Results 09/09/2023 Encounter Details Date Type Department Care Team ([facility] Contact Info) Description 09/09/2023 Telephone [facility] [address] [place] [address] Leidy House MD [address] [place] [address] Results Social History Tobacco Use Types Packs/Day Years [...] * Telephone Encounter - Lisa Hoffman - 09/09/2023 10:14 AM EDT TC from pt requesting call back regarding Results. Type of results: Labs Date when done: 09/06/23 Facility: [facility] documented in this encounter Plan of Treatment Not on file documented as of this encounter Visit Diagnoses Not on filedocumented in this encounter Additional Health Concerns Assessment Noted Time PHQ-9 Depression Total Score: 12 024 2:48 PM EDT documented as of this encounter Care Teams Convention Services Director Relationship Specialty Start Date End Date Leidy House MD [address] [place] [phone] PCP - General Family Medicine 02/29/20 Tracey Roldan Credit Review AnalystSwine Nutritionist 04/28/23 Tracey Roldan Credit Review AnalystSwine Nutritionist 06/29/24 documented as of this encounter
--- OUTSIDE RECORDS SUMMARY | 2025-01-22 21:33 | XMS_ITS | Clinical Summary ---
Author Organization [employer] Address [address] [facility] [address] [place] [address] Care Team Providers Care Supervisor [employer] Name Role Phone Leidy House MD Primary Care Provider [phone] Allergies Active Allergy Reactions Criticality Noted Date Comments Paroxetine 12/01/2016 Other reaction(s): violent tendencies violent tendencies Medications Blood Pressure kit 1 Units Once per day. 1 kit 09/10/19 24 Active atorvastatin (Lipitor) 10 MG tablet TAKE 1 TABLET(10 MG) BY MOUTH DAILY 90 tablet 3 12/01/19 24 Active lidocaine (Lidoderm) 5 % patch APPLY 1 PATCH TOPICALLY TO THE SKIN EVERY DAY. MAY WEAR UP TO 12 HOURS 30 patch 3 12/31/19 24 Active esomeprazole (NexIUM) [address] capsule TAKE 1 CAPSULE BY MOUTH EVERY DAY 1 HOUR BEFORE A MEAL. SWALLOW WHOLE AND DO NOT CRUSH OR CHEW 90 capsule 3 01/18/20 24 Active albuterol (Ventolin HFA) 108 (90 Base) MCG/ACT inhalerIndicatio ns:Moderate persistent asthma without complication INHALE 2 PUFFS BY MOUTH EVERY 4 TO 6 HOURS NEEDED 18 g 3 02/11/20 24 Active FeroSul 325 (65 Fe) MG tabletIndication s:Anemia, unspecified type TAKE 1 TABLET BY MOUTH EVERY OTHER DAY(WEDNESDAY, WEDNESDAY, AND WEDNESDAY) WITH ORANGE JUICE 30 tablet 3 05/29/19 25 Active sertraline (Zoloft) 50 MG tablet TAKE 1 TABLET(50 MG) BY MOUTH IN THE MORNING 90 tablet 3 06/29/19 25 Active hydroCHLOROthiaz yahir 12.5 MG tablet TAKE 1 TABLET BY MOUTH EVERY DAY 90 tablet 3 08/12/19 25 Active metoprolol succinate XL (Toprol-XL) 50 MG 24 hr tablet TAKE 1 TABLET(50 MG) BY MOUTH DAILY. DO NOT CRUSH OR CHEW 90 tablet 3 09/20/19 25 Active meloxicam (Mobic) 15 MG tablet Take 1 tablet (15 mg) by mouth Once per day. 30 tablet 12/13/19 25 026 Active loperamide (Anti-Diarrheal) 2 MG tablet TAKE 1-2 TABLETS BY MOUTH IN THE MORNING, AT NOON, IN THE EVENING, AND AT BEDTIME NEEDED FOR DIARRHEA 30 tablet 3 01/18/20 25 Active cyclobenzaprine (Flexeril) 10 MG tablet TAKE 1 TABLET BY MOUTH TWICE DAILY NEEDED 60 tablet 3 01/18/20 25 Active cyclobenzaprine (Flexeril) 10 MG tablet TAKE 1 TABLET BY MOUTH TWICE DAILY NEEDED 60 tablet 3 08/12/19 25 025 Discontinued loperamide (Anti-Diarrheal) 2 MG tablet TAKE 1-2 TABLETS BY MOUTH IN THE MORNING, AT NOON, IN THE EVENING, AND AT BEDTIME NEEDED FOR DIARRHEA 30 tablet 3 11/14/19 25 025 Discontinued neomycin-bacitra benjamin-polymyxin (Neosporin) 5-400-5000 ointment Apply topically Once per day. 15 g 12/13/19 25 025 Stool Softener 100 MG capsule Take 1 capsule (100 mg) by mouth if needed in the morning and at bedtime for constipation. 60 capsule 12/13/19 25 025 Active Problems Problem Noted Date Diagnosed Date Acute on chronic cholecystitis 12/12/2024 Assessment & Plan (12/12/2024 2:02 PM EDT): S/p cholecystectomy on 11/18, currently tolerates p.o. and denies any other symptoms, follow-up with surgery as needed Avoid constipation, Colace Rx sent to pharmacy Advance diet as tolerated, hold off for worsening abdominal pain Take meloxicam as needed for surgical site tenderness, avoid narcotics and follow-up with surgery as needed Surgical site infection 12/12/2024 Assessment & Plan (12/12/2024 2:01 PM EDT): On bellybutton stitches, she is currently on antibiotics and is advised to complete Rx. Dry dressing with topical antibiotics to be done every day until small ulceration heals Follow-up with PCP within 3 to 4 weeks, if has not improved, will need to follow-up with surgery. We discussed importance of avoiding constipation, Colace Rx sent to pharmacy Mixed hyperlipidemia 09/10/2023 Overview (09/10/2023): Start lipitor 10 g nightly (09/10/23) Albuminuria 09/10/2023 Discoloration of skin of toe 09/06/2023 Assessment & Plan (12/12/2024 1:56 PM EDT): Not improving with Penlac lotion, probably not onychomycosis Discussed the multiple etiologies of this condition including toxicities, lentiginous lesions and age-related. Patient wants a second opinion, will refer to podiatry Assessment & Plan (09/06/2023 5:11 PM EDT): -unable to accurately assess the great toe -will trial penlac for possible fungal infection -patient advised to dry feet thoroughly after showers and expose toes to fresh air Screening for colorectal cancer 09/06/2023 Assessment & Plan (09/06/2023 5:15 PM EDT): -patient agreeable to screening with cologuard -counseled on 13% false positive and 8% false negative rate and is aware that if the test is positive a diagnostic colonoscopy should be pursued within 3-6 months. -patient informed of need to repeat test in 3 years if negative result -cologuard order placed Screening examination for STI 09/06/2023 Assessment & Plan (09/06/2023 5:18 PM EDT): -patient agreeable to screening -previous hepatitis B surface antibody results borderline . Will offer booster vaccine if necessary Obstructive sleep apnea 03/10/2023 Assessment & Plan (09/06/2023 5:21 PM EDT): -testing completed 04/14/2023 with results indicating obstructive sleep apnea with AHI 10.8. Will need CPAP settings auto PAP mode and initial pressures 6-16 cm. -order for CPAP machine and supplies sent to DME specialist Assessment & Plan (03/10/2023 8:38 AM EST): CPAP taken away due to non-compliance, she is ready to address this again Breathlessness lying flat 03/10/2023 Assessment & Plan (03/10/2023 8:38 AM EST): Echo ordered Screening mammogram for breast cancer 03/10/2023 Encounter for routine adult physical exam with abnormal findings 03/10/2023 of family member 01/20/2023 Assessment & Plan (01/20/2023 12:03 PM EDT): She is processing her sister's and involve in planning the service Denies any acute needs She would like to come in person for physical after her sister's service, after Feb 06, 2023 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 Colace ordered to assist with this symptom -labs ordered to evaluate current status Essential hypertension 10/17/2019 Overview (09/10/2023): 10 year ASCVD risk 16.5% Takes metoprolol 25 mg every day. Added olmesartan 20 mg every day (09/10/23) Assessment & Plan (09/06/2023 5:06 PM EDT): -BP above target goal of <130/80 -continue metoprolol 25 mg -microalbumin: ordered today -10 year ASCVD risk: 7.4% -daily BP monitoring advised -low salt diet and 30 min moderate intensity daily exercise recommended -Reviewed ED precautions to include chest pain, shortness of breath, severe headache, sudden vision changes or BP >=180/>=120 mmHg. -Call clinic if three or more BP readings >140/90. -follow-up 3 months Assessment & Plan (03/10/2023 8:42 AM EST): Maintenance: Metoprolol BMP: Lab Results Component Value Date CREATININE 0.78 03/08/2023 K 4.3 03/08/2023 Lipid Panel: Lab Results Component Value Date LDLCHOL 117 (H) 07/21/2021 ASCVD Risk: Calculate pending updated labs EKG: Obtain baseline at f/u - Aerobic exercise to reduce BP. Initial goal of 30 min walk 3-5x/week. Increase as tolerated. - low-sodium diet (goal: <2g/day) and heart healthy diet such as DASH to reduce BP and prevent ASCVD. - Home BP monitoring 1-2 x day with goal of <140/90. - Seek immediate medical attention for chest pain, palpitations, SOB, syncope, or sudden changes in mental status. - Do not change or discontinue current prescriptions without first consulting health care provider Subclinical hyperthyroidism 02/20/2017 Abnormal serum thyroid stimulating hormone (TSH) level 01/14/2017 Anterior knee pain 11/12/2016 Recurrent major depressive episodes, moderate (C MS/HCC) 11/12/2016 Encounters Date Type Department Care Team Description 01/16/2025 Refill [facility] [address] [place] [phone] Leidy House MD 01/09/[address] [address] Leidy House MD Call Back Request 01/09/[address] [address] Leidy House MD Chart Prep 12/29/2024 Patient Outreach [address] [address] Leidy House MD Care Coordination ([facility] Diana Cramer outreach) 12/29/[address] [address] Leidy House MD PT-1 12/12/2024 10:45 AM EDT Office Visit [address] [address] Alyse Mcdermott MD Acute on chronic cholecystitis (Primary Dx); Surgical site infection; Discoloration of skin of toe 12/12/2024 Telephone [facility] [address] [place] [address] Leidy House MD DME GUAZE 2X2 AND SURGICAL TAPE 12/12/2024 Travel 12/06/2024 Orders Only [address] [address] Leidy House MD 12/05/[address] [address] Leidy House MD fyi 12/05/2024 Orders Only GENERIC EXTERNAL DATA DEPARTMENT Provider, Generic External Data 12/04/[address] [address] Leidy House MD Medication Question 11/22/2024 Patient Outreach [address] [address] Leidy House MD Care Coordination ([facility] outreach SDOH pest control - referral completed ) 11/22/2024 Patient Outreach [address] [address] Leidy House MD Transition Of Care (Tcm) (SDOH screening positive and Tobacco screening positive) 11/22/[address] [address] Leidy House MD Hospital Follow-up 11/20/2024 Patient Outreach [address] [address] Leidy House MD Transition Of Care (Tcm) (HDF unscheduled LVM ) 11/18/2024 Orders Only [facility] External Provider, [facility] 11/11/[address] [phone] Leidy House MD from Last 3 Months Social History Tobacco Use Types Packs/Day Years [...] or [place] 01/12/2024 12 :19 PM EDT Last Filed Vital Signs Vital Sign Reading Time Taken Comments Blood Pressure 138/89 12/12/2024 10:53 AM EDT Pulse 74 12/12/2024 10:53 AM EDT Temperature 37.1 C (98.8 F) 12/12/2024 10:53 AM EDT Respiratory Rate 16 12/12/2024 10:53 AM EDT Oxygen Saturation 99% 12/12/2024 10:53 AM EDT Inhaled Oxygen Concentration - - Weight 85.4 kg (188 lb 3.2 oz) 12/12/2024 10:53 AM EDT Height 157.5 cm (5' 2 ) 12/12/2024 10:53 AM EDT Body Mass Index 34.42 12/12/2024 10:53 AM EDT Plan of Treatment Health Maintenance Due Date Last Done Comments CT Colonography 1972 Colonoscopy 1972 FIT 1970 Sigmoidoscopy 1970 Disability Screening 1972 Alcohol/Substance Use Screening 1984 DTaP/Tdap/Td Vaccines (1 - Tdap) 01/01/1991 Hepatitis B Vaccines (1 of 3 - 19+ 3-dose series) 01/01/1991 Pneumococcal Vaccine: 50+ Years (1 of 2 - PCV) 01/01/1991 Zoster Vaccines (1 of 2) 01/01/2022 Depression Monitoring 03/08/2024 09/06/2023 , 09/06/2023 FOBT 12/07/2024 12/08/2023 COVID-19 Vaccine (1 - 2023-2 5 season) 2024 Influenza Vaccine (#1) 2024 Mammogram 07/27/2025 07/28/2023, 05/26/2018 SDOH Screening 11/22/2025 11/22/2024 Cervical Cancer Screening 12/02/2025 HPV/Cotest 12/02/2025 12/02/2020 Pap Smear 12/02/2025 12/02/2020 Tobacco Screening 12/12/2025 12/12/2024 Colorectal Cancer Screening 12/07/2026 FIT DNA/Cologuard 12/07/2026 12/08/2023 Lipid Panel 09/05/2028 09/06/2023, 03/08/2023, 07/21/2021 RSV Patients and Patients Aged 60 years or older (1 - 1-dose 75+ series) 01/01/2047 HIV Screening Completed 11/03/2019 Hepatitis C Screening Completed 09/06/2023 , 11/03/2019 HIB Vaccines Aged Out No longer eligi [...] patient's age to complete this topic Meningococcal Vaccine Aged Out No justin zaria eligible based on patient's age to complete this topic RSV under 20 months Aged Out No longe r eligible based on patient's age to complete this topic Rotavirus Vaccines Aged Out No longer eligible based on patient's age to complete this topic Procedures Procedure Name Priority Date/Time Associated Diagnosis Comments DRUG MONITOR, PANEL 1, SCREEN, URINE Routine 12/05/2024 8:39 AM EDT URINALYSIS, COMPLETE, WITH REFLEX TO CULTURE Routine 12/05/2024 8:39 AM EDT US ABDOMEN LIMITED Routine 11/18/2024 10 :28 AM EDT LAB COLOGUARD COLON CANCER SCREEN Routine 12/08/2023 1:00 PM EDT Screening for colorectal cancer HEPATITIS C AB W/REFL TO HCV RNA, QN, PCR Routine 09/06/2023 4:20 PM EDT Screening examination for STI LIPID PANEL, STANDARD Routine 09/06/2023 4:20 PM EDT Essential hypertension BI MAMMOGRAM SCREENING TOMOSYNTHESIS BILATERAL Routine 07/28/2023 3:10 PM EDT HPV MRNA E6/E7 REFLEX TO HPV 16, 18/45 Routine 12/02/2020 12:00 AM EDT THINPREP IMAGING SYSTEM PAP Routine 12/02/2020 12:00 AM EDT HIV 1/2 ANTIGEN/ANTIBODY, FOURTH GENERATION W/RFL Routine 11/03/2019 1:07 PM EDT from Last 3 Months or Most Recently Relevant to Health Maintenance Results * (ABNORMAL) Urinalysis, Complete, with Reflex to Culture (12/05/2024 8:39 AM EDT) Color Urine Yellow [facility] Appearance Urine Clear [facility] PH 5.5 5.0 - 9.0 [facility] Glucose Urine UA Negative Negative mg/dL [facility] Urine Blood Negative Negative [facility] Specific [place] - Urine 1.015 1.005 - 1.025 [facility] Urine Protein 30 (1+)(A) Neg-Trace mg/dL [facility] Urine Ketones Negative Negative mg/dL [facility] Nitrite Urine Negative Negative [facility] Leukocyte Esterase Urine Trace(A) Negative [facility] RBC Urine 0-2 0 - 2 /HPF [facility] Urine WBC 0-5 0 - 5 /HPF [facility] Urine Squamous Epithelial Cell 6-10 0 - 2 /HPF [facility] Urine Bacteria 1+ None Seen [facility] Hyaline Casts, Urine 3-5 0 - 2 /LPF [facility] 12/05/2024 8:39 AM EDT 12/05/2024 8:58 AM EDT Narrative [facility] - 12/05/2024 9:06 AM EDT [id number], Clean Catch us Generic External Data Provider LAB URINE ORDERAB LES Final Result [facility] [address] [place] [phone] * (ABNORMAL) Drug Monitoring, Panel 1, Screen, Urine (12/05/2024 8:39 AM EDT) Opiate Screen Urine Not Detected Not Detect [facility] Comment:Opiate cut-off is 30 0 ng/mL.Positive results are unconfirmed and should not be used fornon-medical purposes. Barbiturates, Urine Not Detected Not Detect [facility] Comment:Barbiturate cut-off is 200 ng/mL.Positive results are unconfirmed and should not be used fornon-medical purposes. Phencyclidine Screen Urine Not Detected Not Detect [facility] Comment:Phencyclidine cut-of f is 25 ng/mL.Positive results are unconfirmed and should not be used fornon-medical purposes. Amphetamine Screen Urine Not Detected Not Detect [facility] Comment:Amphetamine cut-off is 1000 ng/mL.Positive results are unconfirmed and should not be used fornon-medical purposes. Benzodiazepines Screen Urine Not Detected Not Detect [facility] Comment:Benzodiazepine cut-o ff is 200 ng/mL.Positive results are unconfirmed and should not be used fornon-medical purposes. Cocaine Screen Urine POSITIVE(A) Not Detect [facility] Comment:Cocaine cut-off is 3 00 ng/mL.Positive results are unconfirmed and should not be used fornon-medical purposes. Cannabinoid Screen Urine Not Detected Not Detect [facility] Comment:Cannabinoid cut-off is 50 ng/mL.Positive results are unconfirmed and should not be used fornon-medical purposes. Methadone Screen, Urine Not Detected Not Detect ng/mL [facility] Comment:Methadone cut-off is 300 ng/mL.Positive results are unconfirmed and should not be used fornon-medical purposes. FENTANYL URINE Not Detected Not Detect [facility] Comment:Fentanyl cut-off is 1 ng/mL.Positive results are unconfirmed and should not be used fornon-medical purposes. Oxycodone Urine Screen Not Detected Not Detect ng/mL [facility] Comment:Oxycodone cut-off is 100 ng/mL.Positive results are unconfirmed and should not be used fornon-medical purposes. Buprenorphine Screen Not Detected Not Detect ng/mL [facility] Comment:Buprenorphine cut-of f is 5 ng/mL.Positive results are unconfirmed and should not be used fornon-medical purposes. 12/05/2024 8:39 AM EDT 12/05/2024 8:58 AM EDT us Generic External Data Provider LAB URINE ORDERAB LES Final Result [facility] [address] [place] [phone] * US Abdomen Limited (11/18/2024 10:28 AM EDT) Anatomical Region Laterality Modality Abdomen Ultrasound 11/18/2024 10:2 8 AM EDT Narrative 11/18/2024 10:29 AM EDT [address] [address] Ultrasound Report Signed Patient: Shelby Boateng MR#: [id number] [birth year] : 1970 Acct:[id number] Age/Sex: 54 / F ADM Date: 11/18/24 Loc: HO.ED Attending Dr: Ordering Physician: Rick Arroyo MD Date of Service: 11/18/24 Procedure(s): US abdomen limited Accession Number(s): [id number] cc: Rick Arroyo MD; Leidy House CLINICAL HISTORY: RUQ pain, tender --- Additional Notes or Special Instructions: AM routine US (no tech call in is needed). Point of care US abdomen limited with duplex and color Doppler Comparison: None Findings: Visualized pancreas is normal. Tail obscured by bowel gas. Liver is normal in size and echotexture. Right lobe length 17.8 cm. No focal hepatic masses. Common duct 3.4 mm diameter. Gallbladder is physiologically distended. 2.1 cm mobile gallstone. 1.4 cm gallstone seemed fixed in the neck of the gallbladder. No gallbladder wall thickening. No pericholecystic fluid. Technologist made no documentation about a Osorio's sign Main portal vein antegrade. Right kidney measures, 11.6 cm in length. Normal cortical width and echotexture. No hydronephrosis calculus or mass. Impression: 1. Cholelithiasis. 1.4 cm nonmobile gallstone neck of the gallbladder. No gallbladder wall thickening pericholecystic fluid or biliary dilatation. 2. The technologist made no documentation about a sonographic Osorio's sign This document has been electronically signed by: Arnaud Saldana MD on 11/18/2024 10:28:29 Dictated By: Arnaud Saldana MD Signed By: <Electronically signed by Arnaud Saldana MD in OV> 11/18/24 1029 DD/ 1028 TD/TT: 11/18/24 1028 Shuttle Inspector: Procedure Note Donotuseinterpreter, Image - 11/18/2024 [place] [address] Ultrasound Report Signed Patient: Shelby Boateng EMR#: [id number] 96 : 1970Acct:[id number] Age/Sex: 54 / FADM Date: 11/18/24 Loc: HO.ED Attending Dr: Ordering Physician: Rick Arroyo MD Date of Service: 11/18/24 Procedure(s): US abdomen limited Accession Number(s): [id number] cc: Rick Arroyo MD; Leidy House CLINICAL HISTORY: RUQ pain, tender --- Additional Notes or SpecialInstructions: AM routine US (no tech call in is needed). Point of care US abdomen limited with duplex and color Doppler Comparison: None Findings: Visualized pancreas is normal. Tail obscured by bowel gas. Liver is normal in size and echotexture. Right lobe length 17.8 cm. No focal hepatic masses. Common duct 3.4 mm diameter. Gallbladder is physiologically distended. 2.1 cm mobile gallstone. 1.4 cm gallstone seemed fixed in the neck of the gallbladder. No gallbladder wall thickening. No pericholecystic fluid. Technologist made no documentation about a Osorio's sign Main portal vein antegrade. Right kidney measures, 11.6 cm in length. Normal cortical width and echotexture. No hydronephrosis calculus or mass. Impression: 1. Cholelithiasis. 1.4 cm nonmobile gallstone neck of the gallbladder. No gallbladder wall thickening pericholecystic fluid or biliary dilatation. 2. The technologist made no documentation about a sonographic Osorio'ssign This document has been electronically signed by: Arnaud Saldana MD on 11/18/2024 10:28:29 Dictated By: Arnaud Saldana MD Signed By: <Electronically signed by Arnaud Saldana MD in OV> 11/18/24 1029 DD/ 1028 TD/TT: 11/18/24 1028 Shuttle Inspector: [facility] External Provider IM US PROCEDURES Final Result * Cologuard?? colon cancer screening (12/08/2023 1:00 PM EDT) Cologuard Result Negative Negative 12/18/19 5:36 PM EDT [facility] (CLIA #:[id number]) Comment: NEGATIVE TEST RESULT. A negative Cologuard result indicates a low likelihood that a colorectal cancer (CRC) or advanced adenoma (adenomatous polyps with more advanced pre-malignant features) is present. The chance that a person with a negative Cologuard test has a colorectal cancer is less than 1 in 1500 (negative predictive value >99.9%) or has an advanced adenoma is less than 5.3% (negative predictive value 94.7%). These data are based on a prospective cross-sectional study of 10,000 individuals at average risk for colorectal cancer who were screened with both Cologuard and colonoscopy. (Jaycob Chong al, N Engl J Med 2014;370(14):5819-5058) The normal value (reference range) for this assay is negative. COLOGUARD RE-SCREENING RECOMMENDATION: Periodic colorectal cancer screening is an important part of preventive healthcare for asymptomatic individuals at average risk for colorectal cancer. Following a negative Cologuard result, the [place] [employer] and U.S. Multi-Society Task Force screening guidelines recommend a Cologuard re-screening interval of 3 years. References: [place] [employer] Guideline for Colorectal Cancer Screening: https://www.cancer.org/cancer/idfwa-lpkmxf-uqiyre/vkojcdxtz-blmujbwbi-vspluhh/ac s-rec ommendations.html.; Iván DK, Jason CR, Marlin LuisK, Colorectal Cancer Screening: Recommendations for Physicians and Patients from the U.S. Multi-Society Task Force on Colorectal Cancer Screening , Am J Gastroenterology 2017; 112:5529-5829. TEST DESCRIPTION: Composite algorithmic analysis of stool DNA-biomarkers with hemoglobin immunoassay. Quantitative values of individual biomarkers are not reportable and are not associated with individual biomarker result reference ranges. Cologuard is intended for colorectal cancer screening of adults of either sex, 45 years or older, who are at average-risk for colorectal cancer (CRC). Cologuard has been approved for use by the U.S. FDA. The performance of Cologuard was established in a cross sectional study of average-risk adults aged 50-84. Cologuard performance in patients ages 45 to 49 years was estimated by sub-group analysis of near-age groups. Colonoscopies performed for a positive result may find as the most clinically significant lesion: colorectal cancer [4.0%], advanced adenoma (including sessile serrated polyps greater than or equal to 1cm diameter) [20%] or non- advanced adenoma [31%]; or no colorectal neoplasia [45%]. These estimates are derived from a prospective cross-sectional screening study of 10,000 individuals at average risk for colorectal cancer who were screened with both Cologuard and colonoscopy. (Jaycob Chong al, N Engl J Med 2014;370(14):5826-1064.) Cologuard may produce a false negative or false positive result (no colorectal cancer or precancerous polyp present at colonoscopy follow up). A negative Cologuard test result does not guarantee the absence of CRC or advanced adenoma (pre-cancer). The current Cologuard screening interval is every 3 years. ([place] [employer] and U.S. Multi-Society Task Force). Cologuard performance data in a 10,000 patient pivotal study using colonoscopy as the reference method can be accessed at the following location: www.[employer].CiiNOW/results. Additional description of the Cologuard test process, warnings and precautions can be found at www.[employer].com. Stool specimen (specimen) 12/08/2023 1:00 PM EDT 12/09/2023 2:48 PM EDT us Brigid Blackburn NP LAB MOLECULAR DIAGNOSTICS ORDER [id number] Final Result [facility] (CLIA #:[id number]) [address] [address], * Hepatitis C Antibody with Reflex to HCV, RNA, Quantitative, Real-Time PCR (09/06/2023 4:20 PM EDT) Hepatitis C Antibody Nonreactive Nonreactive [facility] Comment:Antibodies to HCV no t detected; does not exclude early acuteHCV infection. Blood Venous blood specimen / Unknown 09/06/2023 4:20 PM EDT 09/06/2023 5:25 PM EDT [facility] LAB BLOOD ORDERABLES Final Resu lt [facility] [address] [place] [address] [phone] * (ABNORMAL) Lipid Panel, Standard (09/06/2023 4:20 PM EDT) Triglycerides 341(H) <150 mg/dL [facility] Comment:Desirable Triglyceri de: less than 150 mg/dLBorderline High Triglyceride 150-199 mg/dLHigh Triglyceride: 200-499 mg/dLVery High Triglyceride: greater than or equal to 5OO mg/dL Cholesterol 206(H) <200 mg/dL [facility] Comment:Desirable Cholestero l: less than 200 mg/dLBorderline High Cholesterol: 200-239 mg/dLHigh Cholesterol: greater than 239 mg/dL LDL Cholesterol Calculated 100(H) <100 mg/dL [facility] Comment:Desirable LDL: less than 100 mg/dLNear Optimal/Above Optimal LDL: 110- 129 mg/dLBorderline High LDL: 130-159 mg/dLHigh LDL: 160-189 mg/dLVery High LDL: greater than or equal to 190 mg/dL HDL Cholesterol 38(L) >40 mg/dL [facility] Comment:Desirable HDL: great er than 40 mg/dL Note: This HDL assay may give artificially low results in patients with liver disease. Blood Venous blood specimen / Unknown 09/06/2023 4:20 PM EDT 09/06/2023 5:25 PM EDT [facility] Rebecca FITNESS TEACHER LAB BLOOD ORDERABLES Final Resu lt [facility] [address] [place] [address] [phone] * BI Mammogram Screening Tomosynthesis Bilateral (07/28/2023 3:10 PM EDT) Anatomical Region Laterality Modality Breast Bilateral Mammography 07/28/2023 3:10 PM EDT Narrative 08/08/2023 10:24 PM EDT [facility] [address] [place] [address] Mammography Report Signed Patient: Shelby Boateng MR#: [id number] 96 : 1970 Acct:[id number] Age/Sex: 53 / F ADM Date: 07/28/23 Loc: HO.MAMMO Attending Dr: Leidy House MD Ordering Physician: Leidy House Results: 1Negative Date of Service: 07/28/23 Follow Up: 1 Year From [facility] ina Mammogram Procedure(s): MM tomosynthesis screening BI Accession Number(s): [id number] cc: Leidy House EXAMINATION: MM SCREENING DIGITAL BREAST TOMOSYNTHESIS, BILATERAL CLINICAL INFORMATION: Screening. Asymptomatic. COMPARISON: Mammography: This study is compared with prior exams dating back to 2017. TECHNIQUE: Digital breast tomosynthesis is performed in both the craniocaudal and mediolateral oblique views along with computer-aided detection (CAD). Synthesized 2D images are generated from the tomosynthesis. FINDINGS: There are scattered areas of fibroglandular density (ACR BI-RADS breast composition Category b). There are no significant masses, abnormal calcifications, or other abnormalities. MM/MM tomosynthesis screening BI IMPRESSION: No mammographic evidence of malignancy. ASSESSMENT: BI-RADS BI-RADS 1 - Negative RECOMMENDATION: Routine annual mammography screening. 1 year F/U This examination should not preclude the clinical evaluation of a suspicious palpable abnormality. This patient's information was entered into a reminder system with a target due date for their next mammogram. Dictated By: Yocasta Metzger MD Signed By: <Electronically signed by Yocasta Metzger MD in OV> 08/08/23 2220 DD/ 1510 TD/TT: Shuttle Inspector: Procedure Note Donotuseinterpreter, Image - 08/08/2023 [facility] [address] [place], [place] [address] Mammography Report Signed Patient: Shelby Boateng EMR#: [id number] 96 : 1970Acct:[id number] Age/Sex: 53 / FADM Date: 07/28/23 Loc: HO.MAMMO Attending Dr: Leidy House MD Ordering Physician: Luis Miguel Houseults: 1Negative Date of Service: 07/28/23Follow Up: 1 Year From Orig inal Mammogram Procedure(s): MM tomosynthesis screening BI Accession Number(s): [id number] cc: Leidy House EXAMINATION: MM SCREENING DIGITAL BREAST TOMOSYNTHESIS, BILATERAL CLINICAL INFORMATION: Screening. Asymptomatic. COMPARISON: Mammography: This study is compared with prior exams dating back to 2017. TECHNIQUE: Digital breast tomosynthesis is performed in both the craniocaudal and mediolateral oblique views along with computer-aided detection (CAD). Synthesized 2D images are generated from the tomosynthesis. FINDINGS: There are scattered areas of fibroglandular density (ACR BI-RADS breast composition Category b). There are no significant masses, abnormal calcifications, or other abnormalities. MM/MM tomosynthesis screening BI IMPRESSION: No mammographic evidence of malignancy. ASSESSMENT: BI-RADS BI-RADS 1 - Negative RECOMMENDATION: Routine annual mammography screening. 1 year F/U This examination should not preclude the clinical evaluation of a suspicious palpable abnormality. This patient's information was entered into a reminder system with a target due date for their next mammogram. Dictated By: Yocasta Metzger MD Signed By: <Electronically signed by Yocasta Metzger MD in OV> 08/08/232219 DD/ 1510 TD/TT: Shuttle Inspector: Leidy House MD IMG BI PROCEDURES Edited Resul t - Final * THINPREP TIS PAP (12/02/2020 12:00 AM EDT) Clinical Information: None given [facility] COMMENT SEE COMMENT [facility] Comment: EXPLANATORY NOTE: The Pap is a screening test for cervical cancer. It is not a diagnostic test and is subject to false negative and false positive results. It is most reliable when a satisfactory sample, regularly obtained, is submitted with relevant clinical findings and history, and when the Pap result is evaluated along with historic and current clinical information. COMMENT: This Pap test has been evaluated with computer assisted technology. [facility] Landscape Maintenance Internship : SEE COMMENT [facility] Comment: KN, CT(ASCP) CT screening location: [place] [address] Infection Shift in vaginal faina suggestive of bacterial vaginosis. [facility] Interpretation/R esult: Negative for intraepithelial lesion or malignancy. [facility] LMP: NONE GIVEN [facility] Prev. BX: NONE [facility]IVEN [facility] Prev. PAP: NONE GIVEN [facility] Review Landscape Maintenance Internship : SEE COMMENT [facility] Comment: JH, CT(ASCP) CT screening location: [place] [address] SOURCE: None given [facility] Statement Of Adequacy: SEE COMMENT [facility] Comment: Satisfactory for evaluation. Endocervical/transformation zone component absent. 12/02/2020 Leidy House MD LAB PATHOLOGY ORDERABLES Final Result [facility] [address] * HPV mRNA E6/E7 REFLEX TO HPV 16, 18/45 (12/02/2020 12:00 AM EDT) HPV nRNA E6/E7 Not Detected Not Detected [facility] Comment: Methodology: Dedicated Driver-Mediated Amplification This assay detects E6/E7 viral messenger RNA (mRNA) from 14 high-risk HPV types (16,18,31,33,35,39,45,51,52,56,58,59,66,68). The analytical performance characteristics of this assay have been determined by [employer]. The modifications have not been cleared or approved by the FDA. This assay has been validated pursuant to the CLIA regulations and is used for clinical purposes. For additional information, please refer to http://myaNUMBER.Ampulse/faq/ISC093u0 (This link if provided for information/ educational purposes only.) 12/02/2020 Leidy House MD LAB CYTOLOGY ORDERABLES Final Result [facility] [address] * HIV 1/2 ANTIGEN/ANTIBODY,FOURTH GENERATION W/RFL (11/03/2019 1:07 PM EDT) HIV-1/2 ANTIGEN AND ANTIBODIES, 4TH GENERATION W/ REFLEX NON-REACT FELICIANO NON-REACT FELICIANO [facility] Comment: HIV-1 antigen and HIV-1/HIV-2 antibodies were not detected. There is no laboratory evidence of HIV infection. PLEASE NOTE: This information has been disclosed to you from records whose confidentiality may be protected by state law. If your state requires such protection, then the state law prohibits you from making any further disclosure of the information without the specific written consent of the person to whom it pertains, or as otherwise permitted by law. A general authorization for the release of medical or other information is NOT sufficient for this purpose. For additional information please refer to http://myaNUMBER.Ampulse/faq/OWP843 (This link is being provided for informational/ educational purposes only.) The performance of this assay has not been clinically validated in patients less than 2 years old. HIV-1/2 ANTIGEN AND ANTIBODIES, 4TH GENERATION W/ REFLEX NON-REACT FELICIANO NON-REACT FELICIANO [facility] Comment: HIV-1 antigen and HIV-1/HIV-2 antibodies were not detected. There is no laboratory evidence of HIV infection. PLEASE NOTE: This information has been disclosed to you from records whose confidentiality may be protected by state law. If your state requires such protection, then the state law prohibits you from making any further disclosure of the information without the specific written consent of the person to whom it pertains, or as otherwise permitted by law. A general authorization for the release of medical or other information is NOT sufficient for this purpose. For additional information please refer to http://education.Ampulse/faq/HCJ229 (This link is being provided for informational/ educational purposes only.) The performance of this assay has not been clinically validated in patients less than 2 years old. HIV-1/2 ANTIGEN AND ANTIBODIES, 4TH GENERATION W/ REFLEX NON-REACT FELICIANO NON-REACT FELICIANO [facility] Comment: HIV-1 antigen and HIV-1/HIV-2 antibodies were not detected. There is no laboratory evidence of HIV infection. PLEASE NOTE: This information has been disclosed to you from records whose confidentiality may be protected by state law. If your state requires such protection, then the state law prohibits you from making any further disclosure of the information without the specific written consent of the person to whom it pertains, or as otherwise permitted by law. A general authorization for the release of medical or other information is NOT sufficient for this purpose. For additional information please refer to http://Phoneplus/faq/VHJ496 (This link is being provided for informational/ educational purposes only.) The performance of this assay has not been clinically validated in patients less than 2 years old. HIV-1/2 ANTIGEN AND ANTIBODIES, 4TH GENERATION W/ REFLEX NON-REACT FELICIANO NON-REACT FELICIANO [facility] Comment: HIV-1 antigen and HIV-1/HIV-2 antibodies were not detected. There is no laboratory evidence of HIV infection. PLEASE NOTE: This information has been disclosed to you from records whose confidentiality may be protected by state law. If your state requires such protection, then the state law prohibits you from making any further disclosure of the information without the specific written consent of the person to whom it pertains, or as otherwise permitted by law. A general authorization for the release of medical or other information is NOT sufficient for this purpose. For additional information please refer to http://myaNUMBER.Ampulse/faq/CHW894 (This link is being provided for informational/ educational purposes only.) The performance of this assay has not been clinically validated in patients less than 2 years old. 11/03/2019 1:0 7 PM EDT us Ralf Anderson MD LAB BLOOD ORDERABLES Final Res ult [facility] [address] from Last 3 Months or Most Recently Relevant to Health Maintenance Insurance * Guarantor: Shelby Boateng Account Type Relation to Patient Date of Phone Billing Address Personal/Family Self [address] Care Teams Supervisor Carbon Paper Coating Relationship Specialty Start Date End Date Leidy House MD [address] [place] [address] PCP - General Family Medicine 02/29/20 Tracey Roldan Floor Covering ContractorHim Specialist 04/28/23 Tracey Roldan Floor Covering ContractorHim Specialist 06/29/24
--- OUTSIDE RECORDS SUMMARY | 2025-01-22 21:33 | XMS_ITS | Encounter Summary ---
Author Organization [employer] Address [address] [facility] 7t [place] [address] Care Team Providers Care Salon Stylist Name Role Phone Leidy House MD Primary Care Provider [phone] Reason for Visit * Reason Onset Date Comments Created in error 10/25/2023 Encounter Details Date Type Department Care Team ([facility] Contact Info) Description 10/25/2023 Telephone [facility] [address] [place] [address] Leidy House MD [address] [place] [address] Created in error Social History Tobacco Use Types Packs/Day Years [...] is your housing situation today? I have sreina altamirano 08/27/[address] you [...] documented as of this encounter Care Teams Salon Stylist Relationship Specialty Start Date End Date Leidy House MD [address] [place] [address] PCP - General Family Medicine 02/29/20 Tracey Roldan Fur Cutting Machine OperatorFuel Efficient Aircraft Designer 04/28/23 Tracey Roldan Fur Cutting Machine OperatorFuel Efficient Aircraft Designer 06/29/24 documented as of this encounter
--- OUTSIDE RECORDS SUMMARY | 2025-01-22 21:33 | XMS_ITS | Encounter Summary ---
Author Organization [employer] Address [address] [facility] 7t [place] [address] Care Team Providers Care Angle Roll Operator Name Role Phone Leidy House MD Primary Care Provider [phone] Reason for Referral * Hospital - Outpatient (Routine) - Closed Specialty Diagnoses / Procedures Referred By Genesis billings Referred To Contact Diagnoses Obstructive sleep apnea Procedures Polysomnography Leidy House MD [address] [place] [address] Phone: tel: fax: [address] Phone: tel: fax: Referral ID Status Reason Start Date Expiration Date Visits Re quested Visits Authorized [id number] Closed 09/29/2024 09/29/2025 1 1 Encounter Details Date Type Department Care Team (Late st Contact Info) Description 09/29/2024 Orders Only [facility] [address] [place], [place] [phone] Leidy House MD [address] [place] [address] Obstructive sleep apnea (Primary Dx) Social History Tobacco Use Types [...] as of this encounter Plan of Treatment Scheduled Orders Name Type Priority Associated Diagnoses Orde r Schedule Polysomnography Sleep Center Routine Obstructive sleep apnea Expected: 09/29/2024 (Approximate), Expires: 09/29/2025 documented as of this encounter Visit Diagnoses Diagnosis Obstructive sleep apnea- Primary Obstructive sleep apnea (adult) (pediatric) documented in this encounter Additional Health Concerns Assessment Noted Time PHQ-9 Depression Total Score: 12 024 2:48 PM EDT documented as of this encounter Care Teams Angle Roll Operator Relationship Specialty Start Date End Date Leidy House MD [address] [place] [address] PCP - General Family Medicine 02/29/20 Tracey Roldan Profile GrinderFashion Consultant 04/28/23 Tracey Roldan Profile GrinderFashion Consultant 06/29/24 documented as of this encounter
--- OUTSIDE RECORDS SUMMARY | 2025-01-22 21:33 | XMS_ITS | Encounter Summary ---
Author Organization [employer] Address [address] [facility] 7t [place] [address] Care Team Providers Care Zigzag Stitcher Name Role Phone Leidy House MD Primary Care Provider Reason for Visit * Reason Comments Med Refill Encounter Details Date Type Department Care Team ([facility] Contact Info) Description 10/08/2024 Refill [facility] [address] [place], [place] [phone] Leidy House MD [address] [place] [address] Social History Tobacco Use Types Packs/Day Years [...] housing situation today? I have serina adarsh 08/27/[address] you li [...] documented as of this encounter Care Teams Zigzag Stitcher Relationship Specialty Start Date End Date Leidy House MD [address] [place] [address] PCP - General Family Medicine 02/29/20 Tracey Roldan Acidity TesterSurvey Statistician 04/28/23 Tracey Roldan Acidity TesterSurvey Statistician 06/29/24 documented as of this encounter
--- OUTSIDE RECORDS SUMMARY | 2025-01-22 21:33 | XMS_ITS | Encounter Summary ---
Author Organization [employer] Address [address] [facility] 7t [place] [address] Care Team Providers Care Molding Machine Tender Name Role Phone Leidy House MD Primary Care Provider [phone] Reason for Visit * Reason Onset Date Comments PT-1 10/04/2024 Encounter Details Date Type Department Care Team ([facility] Contact Info) Description 10/04/2024 Telephone [facility] [address] [place] [address] Leidy House MD [address] [place] [address] PT-1 Social History Tobacco Use Types Packs/Day [...] * Telephone Encounter - Naman Roldan - 10/04/2024 11:20 AM EDT Patient calling requesting PT1 Home Address verified: Y/N: Yes Provider name or facility name: [facility] Facility Address: [address] [place] [address] [place], [place] [address] Escort needed: Y/N: No Do you have a wheelchair: Y/N: No If yes- Manual or electric: N/A (uses santos) Visits: 3 monthly documented in this encounter Plan of Treatment Not on file documented as of this encounter Visit Diagnoses Not on filedocumented in this encounter Additional Health Concerns Assessment Noted Time PHQ-9 Depression Total Score: 12 024 2:48 PM EDT documented as of this encounter Care Teams Molding Machine Tender Relationship Specialty Start Date End Date Leidy House MD [address] [place] [address] PCP - General Family Medicine 02/29/20 Tracey Roldan I&C TechSolar Field Installation Crew Member 04/28/23 Tracey Roldan I&C TechSolar Field Installation Crew Member 06/29/24 documented as of this encounter
--- OUTSIDE RECORDS SUMMARY | 2025-01-22 21:33 | XMS_ITS | Encounter Summary ---
Author Organization [employer] Address [address] [place] [address] 7t [place] [address] Care Team Providers Care Railroad Car Cleaner Name Role Phone Leidy House MD Primary Care Provider [phone] Encounter Details Date Type Department Care Team (Late st Contact Info) Description 09/17/2022 Telephone [facility] [address] [place] [address] Tory Taylor LPN Social History Tobacco Use Types Packs/Day Years [...] on filedocumented in this encounter Care Teams Railroad Car Cleaner Relationship Specialty Start Date End Date Leidy House MD [address] [place] [address] PCP - General Family Medicine 02/29/20 Tracey Roldan Forest Fire Prevention ManagerSephora Operations Consultant 04/28/23 Tracey Roldan Forest Fire Prevention ManagerSephora Operations Consultant 06/29/24 documented as of this encounter
--- OUTSIDE RECORDS SUMMARY | 2025-01-22 21:34 | XMS_ITS | Encounter Summary ---
Author Organization [employer] Address [address] [place] [address] 7t [place] [address] Care Team Providers Care Rest Room Maid Name Role Phone Leidy House MD Primary Care Provider [phone] Encounter Details Date Type Department Care Team (Latest Contact Info) Description 06/16/2019 Abstract [facility] CONVERSIONS Dental, Provider, DDS Social History Tobacco Use Types Packs/Day Years [...] on filedocumented in this encounter Care Teams Rest Room Maid Relationship Specialty Start Date End Date Leidy House MD [address] [place] [address] PCP - General Family Medicine 02/29/20 Tracey Roldan Special Assets OfficerRegistered Mail Clerk 04/28/23 Tracey Roldan Special Assets OfficerRegistered Mail Clerk 06/29/24 documented as of this encounter
--- OUTSIDE RECORDS SUMMARY | 2025-01-22 21:34 | XMS_ITS | Encounter Summary ---
Author Organization [employer] Address [address] [facility] 7t [place] [address] Care Team Providers Care Starter Mechanic Name Role Phone Leidy House MD Primary Care Provider [phone] Reason for Visit * Reason Comments Med Refill Encounter Details Date Type Department Care Team ([facility] Contact Info) Description 01/16/2025 Refill [facility] [address] [place] [address] Leidy House MD [address] [place] [address] Social History Tobacco Use Types Packs/Day Years [...] documented as of this encounter Care Teams Starter Mechanic Relationship Specialty Start Date End Date Leidy House MD [address] [place] [address] PCP - General Family Medicine 02/29/20 Tracey Roldan Laundry Tub MakerIndustrial Rehabilitation Consultant 04/28/23 Tracey Roldan Laundry Tub MakerIndustrial Rehabilitation Consultant 06/29/24 documented as of this encounter
--- OUTSIDE RECORDS SUMMARY | 2025-01-22 21:34 | XMS_ITS | Clinical Summary ---
Author Organization [address] [facility] Address [address] [place] [address] Phone Care Team Providers Care Tool And Die Engineer Name Role Phone Alyse Mcdermott MD Primary Care Provider Social History Tobacco Use Types Packs/Day Years Used Date Smoking Tobacco: Never Assessed Comments Unknown Sex and Gender Information Value Date Recorded Sex Assigned at Not on file Legal Sex Female 12:13 PM EST Gender Identity Not on file Sexual Orientation Not on file Plan of Treatment Upcoming Encounters Date Type Department Care Team ([facility] Contact Info) Description 03/07/2025 1:15 PM EST Office Visit Orthopedic Surgery [facility] [address] [address] Tyler Gudino, DPM [address] [address] Health Maintenance Due Date Last Done Comments Breast Cancer Screening 1970 DTaP,Tdap,and Td Vaccines (1 - Tdap) 01/01/1991 Hepatitis B Vaccines (1 of 3 - 19+ 3-dose series) 01/01/1991 Cervical Cancer Screening: P ap Smear 01/01/1993 Pneumococcal Vaccine: 50+ Ye ars (1 of 1 - PCV) 01/01/2022 Zoster Vaccines (1 of 2) 01/01/2022 Depression Screening 04/26/2024 Colorectal Cancer Screening: Colonoscopy 12/21/2024 HIV Screening 12/21/2024 Hepatitis C Screening 12/21/2024 Social Influencers of Health Screening 12/21/2024 COVID-19 Vaccine (1 - 2023-2 5 season) 2024 Influenza Vaccine (#1) 2024 HIB Vaccines Aged [...] on patient's age to complete this topic Insurance MEDICAID - [place] Care Teams Tool And Die Engineer Relationship Specialty Start Date End Date Alyse Mcdermott MD [address] [place] [phone] PCP - General Internal Medicine 12/21/24
--- OUTSIDE RECORDS SUMMARY | 2025-01-22 21:34 | XMS_ITS | Encounter Summary ---
Author Organization [employer] Address [address] [place] [address] 7t [place] [address] Care Team Providers Care Bingo Attendant Name Role Phone Leidy House MD Primary Care Provider [phone] Encounter Details Date Type Department Care Team (Late st Contact Info) Description 06/01/2022 Orders Only [facility] [address] [place], [place] [phone] Leidy House MD [address] [place] [phone] FUNMILAYO (obstructive sleep apnea) (Primary Dx) Social History Tobacco Use Types [...] as of this encounter Visit Diagnoses Diagnosis FUNMILAYO (obstructive sleep apnea)- Primary Obstructive sleep apnea (adult) (pediatric) documented in this encounter Care Teams Bingo Attendant Relationship Specialty Start Date End Date Leidy House MD [address] [place] [address] [phone] PCP - General Family Medicine 02/29/20 Tracey Roldan Menu PlannerCreative Services Specialist 04/28/23 Tracey Roldan Menu PlannerCreative Services Specialist 06/29/24 documented as of this encounter
== END ==
LOC: HO.SL 19:30
PROVIDERS: PCP General Practice; Visit Provider General Practice
DX: G47.33 Obstructive sleep apnea (adult) (pediatric) (principal)
CPT/HCPCS: 95810